=== PATIENT | male | born 1970 | race Caucasian/White ===

== ENCOUNTER 2020-06-05 09:54 | Outpatient (REF) | payer BC, SELFPAY ==
[2020-06-05 11:10] LABS: MANUAL DIFF FLAG NO
[2020-06-05 11:20] LABS: Basophils Absolute Auto 0.1 X10*3/uL (0.0-0.2); Basophils Percent Auto 0.9 % (0-2); Eosinophils Absolute Auto 0.6 X10*3/uL (0.0-0.4); Eosinophils Percent Auto 6.9 % (0-4); Hematocrit 49.5 % (42-52); Hemoglobin 16.7 g/dl (14.0-18.0); Imm Gran Abs Auto 0.03 X10*3/uL (0.00-0.03); Imm Gran Pct Auto 0.3 % (0.0-0.4); Lymphocytes Absolute Auto 3.1 X10*3/uL (1.2-4.9); Lymphocytes Percent Auto 34.7 % (20-40); Mean Corpuscular HGB Conc 33.7 g/dl (31.0-36.0); Mean Corpuscular Hemoglobin 31.7 pg (27.0-33.0); Mean Corpuscular Volume 93.9 fL (80-98); Monocytes Percent Auto 11.2 % (2-11); Neutrophils Absolute Auto 4.1 X10*3/uL (2.0-8.3); Platelet Count 281 X10*3/uL (160-400); Red Blood Count 5.27 X10*6/uL (4.60-5.80); Red Cell Distribution Width 13.2 % (11.0-16.0)
[2020-06-05 11:35] LABS: Glucose Urine UA NEG (NEG); Leukocyte Esterase Urine NEG (NEG); Nitrite Urine NEG (NEG); Specific Gravity - Urine >= 1.030 (1.005-1.025); Urine Blood NEG (NEG); Urine Ketones NEG (NEG); Urine Protein NEG (NEG-TRACE)
[2020-06-05 11:38] LABS: Appearance Urine CLEAR; Color Urine YELLOW
[2020-06-05 12:33] LABS: Alanine Aminotransferase 30 U/L (0-40); Albumin Level 4.7 g/dL (3.5-5.0); Alkaline Phosphatase 69 U/L (39-117); Anion Gap 14 (12-20); Aspartate Amino Transferase 33 U/L (5-37); Bilirubin Total 0.6 mg/dL (0.0-1.0); Blood Urea Nitrogen 18 mg/dL (9-16); Carbon Dioxide 30 mmol/L (22-29); Chloride 103 mmol/L (96-108); Estimated Glomerular Filt Rate 57; Glucose Random 86 mg/dL (60-115); Potassium 4.4 mmol/L (3.3-5.1); Sodium 143 mmol/L (135-145); Total Protein 7.7 g/dL (6.5-8.0)
[2020-06-05 12:47] LABS: Lipase 246 U/L (8-78)
== END 2020-06-05 09:55 | disposition home or self-care (01) ==
LOC: HO.HMGCLDS 09:54
PROVIDERS: PCP Nurse Practitioner Family; Visit Provider Hospitalist
DX: R10.32 Left lower quadrant pain (principal)
CPT/HCPCS: 36415; 80053; 81003; 83690; 85025

== ENCOUNTER 2020-06-26 08:01 | Outpatient (REF) | payer BC, SELFPAY ==
--- NOTE | ~2020-06-26 | CT_ITS ---
EXAMINATION: CT ABDOMEN AND PELVIS WITH CONTRAST CLINICAL INFORMATION: Left lower quadrant pain. COMPARISON: 11/02/2018 TECHNIQUE: Multidetector volumetric images were obtained from the superior aspect of the liver through the pubic symphysis following administration 85 mL of Omnipaque 350 intravenous contrast. Sagittal and coronal reformatted images were obtained on the technologist's workstation. Oral contrast: Yes This CT examination was performed using dose optimization techniques as appropriate, variously including the following: *Automated exposure control *Adjustment of mA and/or kV according to patient size (this includes techniques or standardized protocols for targeted exams where dose is matched to indication/reason for exam; i.e. extremities or head) *Use of iterative reconstruction technique DLP: 560 mGy-cm FINDINGS: LUNG BASES: The visualized lung bases are unremarkable. No pleural or pericardial effusion. LIVER, GALLBLADDER, AND BILIARY TREE: There is a 1.1 cm low-density lesion seen within segment 4B of the liver. This was present on prior study from 01/24/2018 where it measured approximately 8 mm in diameter. No intrahepatic bile duct dilatation. The gallbladder is unremarkable with no evidence of radiopaque gallstones, gallbladder wall thickening, or obvious pericholecystic inflammatory changes. PANCREAS: Unremarkable. No abnormal mass or peripancreatic inflammatory change. SPLEEN: Unremarkable. ADRENAL GLANDS: Unremarkable. KIDNEYS AND URETERS: The kidneys are normal in size, shape, and attenuation. No hydronephrosis, hydroureter, or calculi seen. No perinephric stranding. There are a few sub-5 mm cysts present bilaterally. BLADDER: Unremarkable. GASTROINTESTINAL TRACT: No dilated loops of large or small bowel are evident. No free air or free fluid is seen. There appears to be some wall thickening about the proximal jejunum but without associated adjacent inflammatory change within the fat. There is mild diverticulosis of the disease of the sigmoid colon without definite evidence of acute diverticulitis. No pericolonic inflammatory change. The appendix appears unremarkable. ABDOMINAL WALL: No hernia is appreciated. About the right inguinal region, there is some soft tissue density which may be related to previous hernia repair. LYMPH NODES: No lymphadenopathy appreciated. VASCULAR: Unremarkable. PELVIC VISCERA: Unremarkable. OSSEOUS STRUCTURES: No suspicious destructive bony lesions identified. Degenerative disc disease L5-S1. L4-L5 disc bulge. CT/CT abdomen pelvis w con IMPRESSION: Sigmoid diverticulosis without definite evidence of acute diverticulitis. No evidence of obstructive uropathy. A few loops of distended but not dilated jejunum with some wall thickening which may be related to enteritis.
[2020-06-26] MEDS: Barium Sulfate Oral (Berry) 450 ML ORAL.SUSP 900 ML PO (10:33)
== END 2020-06-26 08:02 | disposition home or self-care (01) ==
LOC: HO.CT 08:01
PROVIDERS: PCP Nurse Practitioner Family; Visit Provider Hospitalist
DX: R10.32 Left lower quadrant pain (principal)
CPT/HCPCS: 74177; Q9967

== ENCOUNTER 2021-06-18 14:39 | Outpatient (REF) | payer BC, SELFPAY ==
--- NOTE | ~2021-06-18 | XR_ITS ---
EXAMINATION: XR CHEST CLINICAL INFORMATION: Shortness of breath COMPARISON: None TECHNIQUE: 2 views of the chest were obtained. FINDINGS: No significant abnormality is noted involving the heart, lungs, mediastinum, bony thorax or soft tissues. XR/XR chest 2V IMPRESSION: Unremarkable chest examination.
== END 2021-06-18 14:40 | disposition home or self-care (01) ==
LOC: HO.HMGCX 14:39
PROVIDERS: PCP Nurse Practitioner Family; Visit Provider Internal Medicine
DX: R06.02 Shortness of breath (principal)
CPT/HCPCS: 71046

== ENCOUNTER → 2021-06-23 15:16 | Outpatient (BNVA) | payer BC, SELFPAY | PROVIDERS: PCP Nurse Practitioner Family; Referring Provider Nurse Practitioner Family; Visit Provider Nurse Practitioner | DX: Z12.11 Encounter for screening for malignant neoplasm of colon (principal); Z80.0 Family history of malignant neoplasm of digestive organs ==

== ENCOUNTER 2021-06-25 13:32 | Outpatient (REF) | payer BC, SELFPAY ==
--- NOTE | ~2021-06-25 | US_ITS ---
EXAMINATION: ULTRASOUND EXTREMITY NONVASCULAR CLINICAL INFORMATION: Left axilla lump. COMPARISON: None TECHNIQUE: Grayscale and color imaging of the left axilla using a linear transducer. FINDINGS: There is an oval-shaped solid hypoechoic lesion just deep to the skin. This measures 1.3 x 0.7 x 1.6 cm. This is avascular. This has increased through transmission. Differential would include a complex sebaceous cyst, epidermoid, abnormal-appearing lymph node, atypical appearance of lipoma or other soft tissue nodule. US/US extremity nonvascular IMPRESSION: Nonspecific 1.3 x 0.7 x 1.6 cm oval-shaped solid hypoechoic soft tissue mass just deep to the skin. Differential would include a complex sebaceous cyst, epidermoid, abnormal-appearing lymph node, atypical appearance of lipoma or other soft tissue nodule. This would be amenable to ultrasound-guided aspiration if clinically indicated.
--- NOTE | ~2021-06-25 | US_ITS ---
EXAMINATION: US THYROID CLINICAL INFORMATION: Family history of malignant neoplasm of other organs or systems. COMPARISON: None TECHNIQUE: Linear transducer grayscale and color Doppler examination with attention to the region of the thyroid. FINDINGS: SIZE: Measurements of the thyroid lobes and nodules are given in sagittal, anteroposterior and transverse dimensions respectively. Right Thyroid Lobe: 4.49 x 1.80 x 1.33 cm, volume 5.64 mL. Parenchyma: The gland echotexture is homogeneous. Thyroid vascularity is normal. Left Thyroid Lobe: 4.66 x 1.84 x 1.55 cm, volume 6.95 mL. Parenchyma: The gland echotexture is homogeneous. Thyroid vascularity is normal. Isthmus: 0.38 cm in maximum AP dimension. No focal thyroid nodule is seen. NODES: No lymphadenopathy is seen in the tissue surrounding the thyroid gland. US/US thyroid IMPRESSION: Unremarkable thyroid ultrasound. ACR TI-RADS RECOMMENDATION REFERENCE: Ultrasound-guided fine-needle aspiration, followup ultrasound, no further follow up. * TR1 (0 point) and TR 2 (2 points): No FNA or follow up * TR3 (3 points): FNA if more than or equal to 2.5 cm in maximum dimension, followup ultrasound in 1, 3 and 5 years if 1.5 to 2.4 cm in maximum dimension. * TR4 (4-6 points): FNA if more than or equal to 1.5 cm in maximum dimension, followup ultrasound in 1, 2, 3 and 5 years if 1 to 1.4 cm in maximum dimension. * TR5 (more than or equal to 7 points): FNA if more than or equal to 1 cm in maximum dimension, followup ultrasound every year for 5 years if 0.5 to 0.9 cm in maximum dimension. * TR3, TR4 or TR5 nodules that are below the size threshold for follow up receive no follow up.
== END 2021-06-25 13:33 | disposition home or self-care (01) ==
LOC: HO.HMGCX 13:32
PROVIDERS: PCP Nurse Practitioner Family; Visit Provider Nurse Practitioner Family
DX: R22.30 Localized swelling, mass and lump, unspecified upper limb (principal); Z80.8 Family history of malignant neoplasm of other organs or systems
CPT/HCPCS: 76536; 76882

== ENCOUNTER → 2021-07-31 07:47 | Outpatient (BNVA) | payer SELFPAY | PROVIDERS: PCP Nurse Practitioner Family; Visit Provider Internal Medicine | DX: Z13.89 Encounter for screening for other disorder (principal) ==

== ENCOUNTER 2021-08-13 11:18 | Day surgery (SDC) | payer BC, SELFPAY ==
[2021-08-07 09:49] VITALS: BMI 33.0
--- NOTE | 2021-08-12 10:46 | HO.ANESPROP2 ---
Documented by User: Nelli Purcell NP 08/19/21 13:45 HPI - Anesthesia Eval Consult details Narrative: 51yo M for Colonoscopy [facility] Active Problems Active Problems: All Active Problems (Updated 08/07/21 @ 09:51 by Brittany Collins, JEN) Abdominal pain (Acute) Idiopathic gout, unspecified site (Acute) Hypertension (Acute) Screening for colon cancer (Acute) Family history of thyroid cancer (Acute) Mass of axilla (Acute) Shortness of breath (Acute) Family history of colon cancer (Acute) Physical exam (Acute) Screening PSA (prostate specific antigen) (Acute) Past Medical History Medical History Epidermal inclusion cyst HTN (hypertension) Surgical History Surgical History H/O inguinal hernia repair History of ptosis repair Social History Social History Housing: House Patient Tobacco Use Status: Former Tobacco user Quit Date: off and on from age [age] e-Cigarette/Vaping Use: Never Used Second Hand Smoke Exposure: No service: No Current occupational status: employed Current occupation: [employer] Current occupational exposures/hazards: Yes Cognitive needs: No Hearing needs: No Vision needs: No Meds Allergies Allergy/AdvReac Type Severity Reaction Status Date / Time Sulfa (Sulfonamide Allergy Intermediate Severe Verified 08/19/21 15:42 Antibiotics) vomiting/acid [SULFA (SULFONAMIDE reflux/SOB ANTIBIOTICS)] Exam Exam Date and Time: August 12, 2021 1046 Height,Weight and Vital Signs: Height 5 ft 10 in Weight 104.326 kg Assessment and Plan Assessment Anesthesia Assessment: Chart Reviewed Documented by User: Bon Souza MD 08/20/21 10:21 [facility] Past Medical History Medical History Epidermal inclusion cyst HTN (hypertension) Family History Family history of problems with anesthesia: No Surgical History Surgical History H/O inguinal hernia repair History of ptosis repair History of Problems with Anesthesia: No Social History Social History Housing: House Patient Tobacco Use Status: Former Tobacco user Quit Date: off and on from age [age] e-Cigarette/Vaping Use: Never Used Second Hand Smoke Exposure: No service: No Current occupational status: employed Current occupation: [employer] Current occupational exposures/hazards: Yes Cognitive needs: No Hearing needs: No Vision needs: No Meds Allergies Allergy/AdvReac Type Severity Reaction Status Date / Time Sulfa (Sulfonamide Allergy Intermediate Severe Verified 08/19/21 15:42 Antibiotics) vomiting/acid [SULFA (SULFONAMIDE reflux/SOB ANTIBIOTICS)] Exam Airway Mallampati Class: II TM Dist: >3cm Assessment and Plan Assessment Anesthesia Assessment: Anesthesia Plan Discussed Final Anesthetic Review Family History of Problems with Anesthesia: No History of Problems with Anesthesia: No NPO: Yes ASA Class: II Final Preanesthetic Review: No Changes in Pt Med Stat, Meds/Allgs Chart Reviewed, Consent Obtained/Reviewed and Anes Risks/Benef Reviewed Patient Risk: Intermediate Procedure Risk: Low Anesthetic Plan Anesthetic Plan: MAC: Disposition: Standard PACU
[2021-08-13 11:44] VITALS: BP 129/80; PULSE 71; RESP 16; TEMP 36.7; O2SAT 96; BMI 33.0
--- NOTE | 2021-08-13 11:59 | MHC.SHP ---
Pre-Procedural Eval Section A Date of Service: 08/13/21 Section B Chief Complaint: screening Details of Present Illness: FH of cRC in brother and father Relevant Family History (Specify if Yes): Yes Relevant Social History: None Present Medications: see Short Stay Collaborative assessment Medical History: Significant History (HTN (hypertension)) History of Previous Operations: Relevant previous surgery/procedure and date(s) (H/O inguinal hernia repair History of ptosis repair) Allergies: Allergies Allergy/AdvReac Type Severity Reaction Status Date / Time Sulfa (Sulfonamide Allergy Intermediate Severe Verified 08/07/21 09:50 Antibiotics) vomiting/acid [SULFA (SULFONAMIDE reflux/SOB ANTIBIOTICS)] Review of Systems Sugical H&P ROS: Negative: Constitution, Cardiovascular, Respiratory, Neurological, Psychiatric, Hem-Onc, Allergic/Immunologic, Gastrointestinal, Genitourinary, Musculoskeletal, Integumentary, Endocrine and Eyes/Ears/Nose/Throat Exam Surgical H&P Exam: Normal: HEENT, Normal: Heart, Normal: Lungs, Normal: Extremities, Normal: Abdomen, Normal: Skin and Normal: Neurological Plan Diagnosis/Plan: Unchanged I have reviewed the history and physical and performed a pertinent physical examination on my patient. No changes have occurred unless specified.
--- NOTE | 2021-08-13 12:09 | P.OP_ITS ---
Operative Note Operative Note Date of Service: 08/13/21 Narrative: Operative Information Procedure Description: Colonoscopy Indication: colon screening- high risk Anesthesia: MAC COLONOSCOPY Instrument: Olympus variable stiffness adult scope 190L Colonoscopy Monitoring: Vital signs and clinical assessment, continuous EKG monitoring, Pulse oximetry, Carbon Dioxide monitoring and blood pressure monitoring were done throughout the procedure. Colon withdrawal time was 8 minutes. Procedure: The patient was placed in the left lateral decubitis position and pre-procedure medications were administered. After a digital rectal examination of the ano-rectum, the video colonoscope was inserted into the rectum and advanced through the colon to the cecum/TI. The colonoscope was slowly withdrawn in a retrograde panoramic fashion and the colon mucosa was carefully examined including a retroflexed view of the rectum. Findings and interventions are described below. Procedure Difficulty: easy Findings: Terminal Ileum-normal Cecum:normal Ascending Colon: 10 mm sessile polyp removed with cold snare Transverse Colon -normal Descending Colon:normal Sigmoid Colon: mild to moderate diverticulosis noted Rectum: Retroflexion with small internal hemorrhoids, grade I Anorectum - normal Colon preparation: [place] Bowel Preparation Scale Right colon; 2 Transverse colon: 3 Left colon; 3 (0 = Unprepared colon segment with mucosa not seen due to solid stool that cannot be cleared. 1 = Portion of mucosa of the colon segment seen, but other areas of the colon segment not well seen due to staining, residual stool and/or opaque liquid. 2 = Minor amount of residual staining, small fragments of stool and/or opaque liquid, but mucosa of colon segment seen well. 3 = Entire mucosa of colon segment seen well with no residual staining, small fragments of stool or opaque liquid) Impression and Post Procedure Diagnosis: polyp internal hemorrhoids diverticular disease Plan: High fiber diet leaflet Avoid straining at stool, epsom salts and sitz bath, anusol supps or cream Repeat Colonoscopy in 5 years due to FH or earlier if clinically indicated Above findings were reviewed with the patient and relevant handouts were provided if indicated.
--- NOTE | 2021-08-13 12:09 | PM.OP ---
Brief Operative Note Date of Service: 08/13/21 Pre-op diagnosis: colon screening, high risk Post-op diagnosis: same Procedure: see op note Surgeon: Octavio Hawkins MD Anesthesia: MAC Was an Veterinary Microbiologist used for this Procedure?: No Estimated blood loss (mL): 0 Condition: stable Disposition: PACU
[2021-08-13 12:45] VITALS: BP 115/69; PULSE 82; RESP 16; TEMP 36.1; O2SAT 95
[2021-08-13 13:00] VITALS: BP 117/81; PULSE 65; RESP 16; TEMP 36.8; O2SAT 96
[2021-08-13] MEDS: Lactated Ringers 1,000 ML 100 ML IVCONT (13:00)
== END 2021-08-13 13:35 | disposition home or self-care (01) ==
PROVIDERS: PCP Nurse Practitioner Family; Visit Provider Internal Medicine Gastroenterology
PROC: 0DJD8ZZ Inspection of Lower Intestinal Tract, Via Natural or Artificial Opening Endoscopic (ICD-10-PCS; CPT 45378; principal; 2021-08-13 13:50)
DX: Z12.11 Encounter for screening for malignant neoplasm of colon (principal); Z80.0 Family history of malignant neoplasm of digestive organs; D12.2 Benign neoplasm of ascending colon; K57.30 Diverticulosis of large intestine without perforation or abscess without bleeding; K64.0 First degree hemorrhoids; J40 Bronchitis, not specified as acute or chronic; I10 Essential (primary) hypertension; M10.9 Gout, unspecified; R06.02 Shortness of breath; Z79.899 Other long term (current) drug therapy; Z88.2 Allergy status to sulfonamides; Z87.891 Personal history of nicotine dependence
CPT/HCPCS: 45385; 88305; J2250

== ENCOUNTER → 2021-08-17 14:13 | Outpatient (BNVA) | payer BC, SELFPAY | PROVIDERS: PCP Nurse Practitioner Family; Visit Provider Surgery | DX: L72.0 Epidermal cyst (principal) ==

== ENCOUNTER 2021-08-18 08:32 | Outpatient (REF) | payer BC, SELFPAY ==
[2021-08-18 11:33] LABS: Basophils Absolute Auto 0.1 X10*3/uL (0.0-0.2); Basophils Percent Auto 0.9 % (0-2); Eosinophils Absolute Auto 2.5 X10*3/uL (0.0-0.4); Hematocrit 49.4 % (42.0-52.0); Hemoglobin 16.9 g/dl (14.0-18.0); Imm Gran Abs Auto 0.03 X10*3/uL (0.00-0.03); Imm Gran Pct Auto 0.3 % (0.0-0.4); Lymphocytes Absolute Auto 2.6 X10*3/uL (1.2-4.9); Lymphocytes Percent Auto 26.3 % (20-40); MANUAL DIFF FLAG SCAN; Mean Corpuscular HGB Conc 34.2 g/dl (31.0-36.0); Mean Corpuscular Hemoglobin 31.5 pg (27.0-33.0); Mean Platelet Volume 11.4 fL (9.4-12.4); Monocytes Absolute Auto 0.7 X10*3/uL (0.1-1.2); Monocytes Percent Auto 7.6 % (2-11); Neutrophils Absolute Auto 3.8 x10*3/uL (2.0-8.3); Neutrophils Percent Auto 38.9 % (45-73); Platelet Count 268 X10*3/uL (160-400); Red Blood Count 5.37 X10*6/uL (4.60-5.80); SCAN SMEAR FLAG 1; White Blood Count 9.8 X10*3/uL (4.8-10.8)
[2021-08-18 11:48] LABS: Appearance Urine HAZY; Color Urine YELLOW; Glucose Urine UA NEG (NEG); Leukocyte Esterase Urine NEG (NEG); Nitrite Urine NEG (NEG); Specific Gravity - Urine 1.015 (1.005-1.025); Urine Blood NEG (NEG); Urine Ketones NEG (NEG); Urine Protein NEG (NEG-TRACE)
[2021-08-18 11:52] LABS: SLIDE REVIEW VERIFIED
[2021-08-18 11:58] LABS: Alanine Aminotransferase 33 U/L (0-40); Albumin Level 4.5 g/dL (3.5-5.0); Alkaline Phosphatase 70 U/L (39-117); Anion Gap 14 (12-20); Aspartate Amino Transferase 24 U/L (5-37); Bilirubin Total 0.6 mg/dL (0.0-1.0); Blood Urea Nitrogen 14 mg/dL (9-16); Calcium 10.6 mg/dL (8.4-10.2); Carbon Dioxide 27 mmol/L (22-29); Chloride 103 mmol/L (96-108); Cholesterol 193 mg/dL; Estimated Glomerular Filt Rate 57; Glucose Fasting 118 mg/dL (60-99); HDL Cholesterol 46 mg/dL; LDL Cholesterol Calculated 122 mg/dl; Potassium 4.8 mmol/L (3.3-5.1); Sodium 139 mmol/L (135-145); Total Protein 7.5 g/dL (6.5-8.0); Triglycerides 125 mg/dL
[2021-08-18 12:14] LABS: Prostate Specific Antigen Scr 0.97 ng/mL (<0.05-4.0); TSH reflex Free T4 1.14 uIU/mL (0.32-4.0)
== END 2021-08-18 08:33 | disposition home or self-care (01) ==
LOC: HO.HMGCLDS 08:32
PROVIDERS: PCP Nurse Practitioner Family; Visit Provider Nurse Practitioner Family
DX: Z00.00 Encounter for general adult medical examination without abnormal findings (principal); Z12.5 Encounter for screening for malignant neoplasm of prostate
CPT/HCPCS: 36415; 80053; 80061; 81003; 84153; 84443; 85025

== ENCOUNTER 2021-08-19 17:57 | Outpatient (REF) | payer BC, SELFPAY ==
[2021-08-19 19:11] LABS: Influenza A PCR NEGATIVE (Negative); Influenza B PCR NEGATIVE (Negative); Resp Syncy Virus RNA Qual PCR NEGATIVE (Negative); SARS COV2 PCR INHOUSE NEGATIVE (Negative)
== END 2021-08-19 17:58 | disposition home or self-care (01) ==
LOC: HO.LNP 17:57
PROVIDERS: Visit Provider Emergency Medicine
DX: Z20.822 Contact with and (suspected) exposure to COVID-19 (principal); R68.89 Other general symptoms and signs
CPT/HCPCS: 0241U

== ENCOUNTER 2021-11-23 13:38 | Emergency (ER) | payer BC, SELFPAY ==
--- NOTE | ~2021-11-23 | CT_ITS ---
CT ANGIOGRAM NECK WITH CONTRAST CT ANGIOGRAM BRAIN WITH CONTRAST CLINICAL INFORMATION: Question dizziness. COMPARISON: None available. TECHNIQUE: Test bolus sequences followed by intravenous administration 70 mL of Omnipaque 350. Helical imaging was performed in the axial plane from the thoracic inlet to the skull vertex. Delayed postcontrast imaging of the head was also performed. The data was processed at the creative technologist workstation for generation of MIP sequences. Angled MIPs and volume rendered reformatted images were also generated at an offline 3D workstation under concurrent supervision. Stenoses are assessed in accordance with NASCET criteria unless otherwise indicated. This CT examination was performed using dose optimization techniques as appropriate, variously including the following: *Automated exposure control *Adjustment of mA and/or kV according to patient size (this includes techniques or standardized protocols for targeted exams where dose is matched to indication/reason for exam; i.e. extremities or head) *Use of iterative reconstruction technique FINDINGS: BRAIN: [There is no intracranial hemorrhage, hydrocephalus, extra-axial surface collection, midline shift, or other herniation pattern. Roberts to white matter differentiation is diffusely maintained without evidence of an evolved acute territorial infarct. The basilar cisterns are preserved. No significant soft tissue abnormality. No acute osseous abnormality. The paranasal sinuses and the mastoid air cells are well aerated.] CERVICAL SOFT TISSUES AND LUNG APICES: Imaged upper lungs are clear. No significant soft tissue findings. Multilevel cervical spondylosis. NECK CTA: [There is a classic 3 vessel configuration of the aortic arch. Proximal arch vessels are non-stenotic. The vertebral arteries are codominant. No significant ostial stenosis is visualized on either side. Both vertebral arteries are widely patent throughout their extracranial cervical course. Both common and internal carotid arteries are normal in course and caliber.] BRAIN CTA: [There is normal opacification of major intracranial arteries. No focal flow-limiting stenosis nor discrete proximal large artery occlusion. No aneurysm. Timing of the contrast bolus allows assessment of the major dural venous sinuses, which all opacify normally] CT/CT angio head neck IMPRESSION: Unremarkable CTA of the head and neck.
--- NOTE | ~2021-11-23 | MR_ITS ---
MRI OF THE BRAIN WITHOUT IV CONTRAST INDICATION: Dizziness. COMPARISON: CTA head and neck 11/23/2021. Brain MRI 09/20/2019. TECHNIQUE: Multiplanar multisequence MR imaging of the brain was obtained without IV contrast. FINDINGS: There is no hydrocephalus, extra-axial surface collection, or herniation. The major flow voids at the skull base are preserved. There is no acute infarct on diffusion-weighted imaging. There is no intracranial hemorrhage on the gradient recalled echo acquisition. The midline structures are normal. The cerebellar tonsils are normally positioned. The cerebellum and brainstem are normal. The craniocervical junction is normal. Osseous marrow signal intensity is homogenous. The visualized soft tissues are unremarkable. MR/MR head/brain wo con IMPRESSION: No acute intracranial findings. No acute infarcts.
[2021-11-23 13:54] VITALS: BP 135/94; BP 187/97; PULSE 67; PULSE 77; RESP 20; TEMP 36.7; O2SAT 96; O2SAT 99; BMI 35.9
[2021-11-23 14:04] VITALS: BP 135/94; PULSE 67; RESP 20; TEMP 36.7; O2SAT 96
[2021-11-23 14:07] LABS: Glucose, Whole Blood 129 mg/dL (60-115)
--- NOTE | 2021-11-23 14:08 | ECG_ITS ---
Test Reason : DIZZINESS Blood Pressure : / mmHG Vent. Rate : 056 BPM Atrial Rate : 056 BPM P-R Int : 148 ms QRS Dur : 100 ms QT Int : 456 ms P-R-T Axes : 041 000 007 degrees QTc Int : 440 ms Sinus bradycardia with sinus arrhythmia Otherwise normal ECG When compared with ECG of 06-FEB-2018 08:08, T wave inversion no longer evident in Inferior leads Referred By: Etienne Guajardo Electronically Signed By:CHELSEA PILLAI
[2021-11-23 14:37] LABS: MANUAL DIFF FLAG NO
[2021-11-23 14:39] LABS: Basophils Absolute Auto 0.1 X10*3/uL (0.0-0.2); Basophils Percent Auto 0.6 % (0-2); Eosinophils Percent Auto 10.2 % (0-4); Hematocrit 46.5 % (42.0-52.0); Hemoglobin 16.2 g/dl (14.0-18.0); Imm Gran Abs Auto 0.03 X10*3/uL (0.00-0.03); Imm Gran Pct Auto 0.3 % (0.0-0.4); Lymphocytes Percent Auto 21.4 % (20-40); Mean Corpuscular HGB Conc 34.8 g/dl (31.0-36.0); Mean Corpuscular Hemoglobin 31.6 pg (27.0-33.0); Mean Corpuscular Volume 90.8 fL (80.0-98.0); Mean Platelet Volume 10.3 fL (9.4-12.4); Monocytes Absolute Auto 0.7 X10*3/uL (0.1-1.2); Neutrophils Absolute Auto 5.6 x10*3/uL (2.0-8.3); Neutrophils Percent Auto 60.5 % (45-73); Platelet Count 251 X10*3/uL (160-400); Red Blood Count 5.12 X10*6/uL (4.60-5.80); Red Cell Distribution Width 12.6 % (11.0-16.0); White Blood Count 9.3 X10*3/uL (4.8-10.8)
--- NOTE | 2021-11-23 14:40 | ED_ITS ---
HPI - Dizziness General Chief Complaint: Dizziness Stated Complaint: DIZZINESS,HYPERTENSION Time Seen by Provider: 11/23/21 14:07 Source: patient Mode of arrival: EMS Limitations: no limitations History of Present Illness HPI Narrative: Dizziness while at work 1 h ago,was diphoretic,descrives th dizzness as spinning and lightheadedness at the same time,denies chest pain and SOB MD elicited complaint: dizziness Onset (ago): hour(s) (1) Severity: moderate Description: sense of movement, lightheadedness and off-balance History of similar symptoms: No Exacerbating factors: nothing Relieving factors: nothing Related Data Previous Rx's Medication Instructions Recorded lisinopril 40 mg tablet 40 mg PO DAILY #90 tabs 05/28/21 metoprolol succinate 100 mg 100 mg PO DAILY #90 tabs 05/28/21 tablet,extended release 24 hr triamterene 37.5 1 tab PO QAM #90 tabs 05/28/21 mg-hydrochlorothiazide 25 mg tablet albuterol sulfate 90 mcg/actuation 1 inh inhalation QID PRN shortness 06/18/21 aerosol inhaler of breath or wheezing #6.7 grams peg 3350-electrolytes 236 240 ml PO Q10M 1 day #4,000 mL 06/23/21 gram-22.74 gram-6.74 gram-5.86 gram solution (Golytely) inhalational spacing device #1 ea 08/19/21 (Aerochamber MV spacer) prednisone 10 mg tablet 10 mg PO DAILY #18 tabs 08/19/21 allopurinol 300 mg tablet 300 mg PO DAILY #90 tabs 08/20/21 esomeprazole magnesium 40 mg 40 mg PO DAILY 30 days #30 caps 11/15/21 capsule,delayed release Allergies Allergy/AdvReac Type Severity Reaction Status Date / Time Sulfa (Sulfonamide Allergy Intermediate Severe Verified 11/23/21 13:54 Antibiotics) vomiting/acid [SULFA (SULFONAMIDE reflux/SOB ANTIBIOTICS)] Review of Systems Constitutional: Constitutional: Reports no additional constitutional complaints Cardiovascular: Cardiovascular: Reports no additional cardiovascular complaints Respiratory: Respiratory: Reports no additional respiratory complaints Gastrointestinal: Gastrointestinal: Reports no additional gastrointestinal complaints Neurologic: Reports system reviewed and no additional complaints, except as documented PMFSH Past Medical History Medical History Epidermal inclusion cyst HTN (hypertension) Surgical History H/O inguinal hernia repair History of ptosis repair Social History Social History Housing: House Patient Tobacco Use Status: Former Tobacco user Quit Date: off and on from age [age] e-Cigarette/Vaping Use: Never Used Second Hand Smoke Exposure: No Advance Directives: No Advance Directives Information Provided: Yes service: No Current occupational status: employed Current occupation: [employer] Current occupational exposures/hazards: Yes Cognitive needs: No Hearing needs: No Vision needs: No Physical Exam Vital Signs: Vital Signs: Last Vital Signs Temp 98.2 F 11/23/21 15:48 Pulse 58 11/23/21 15:48 Resp 16 11/23/21 15:48 BP 136/79 11/23/21 15:48 Pulse Ox 98 11/23/21 15:48 O2 Del Method 11/23/21 15:48 BMI result Body Mass Index 35.9 Const: General: cooperative Nutritional Appearance: well nourished Orientation/consciousness: patient oriented x3 HEENT: Head: Yes normal to inspection Ears: hearing grossly normal bilaterally Face and sinus: Yes normal facial exam Mouth: Normal oral and palatal mucosa present Throat: Yes posterior oropharynx normal Eyes: General: appearance normal, both eyes and all related structures Conjunctivae: conjunctivae normal EOM: EOMs intact bilaterally Neck: Neck: Yes full ROM and Yes no lymphadenopathy Chest: Chest palpation & inspection: normal inspection of the chest Resp: Effort & Inspection: normal respiratory effort and able to speak in complete sentences Auscultation: clear to auscultation bilaterally Cardio: Jugular venous distension: no JVD Rate: regular rate Rhythm: regular rhythm GI: Inspection: Yes normal to inspection Palpation (GI): Soft to palpation Skin: General skin exam: no rashes or lesions noted, elasticity normal and turgor normal Lesions: no lesions Neuro: General: patient oriented x3, no focal motor deficits and CN's II-XI intact bilaterally Cranial nerves: Yes CN's II-XII intact bilaterally NIH Stroke Scale Level of Consciousness: Alert Level of Consciousness Questions: Answers both questions correctly Level of Consciousness Commands: Performs both tasks correctly Best Gaze: Normal Visual: No visual loss Facial Palsy: Normal Motor Arm (Right): No drift Motor Arm (Left): No drift Motor Leg (Right): No drift Motor Leg (Left): No drift Limb Ataxia: Absent Sensory: Normal Best Language: No aphasia Dysarthia: Normal Extinction and Inattention: No abnormality Score: 0 Course Reevaluation(s) Reevaluation #1: CTA negative,tropi negative,at this point will go ahead recheck tropi try meclizine and observe a little longer,neurologically is intact I will ventura out to Dr Mauro [facility] - Dizziness Lab Data Result diagrams: 11/23/21 14:30 11/23/21 14:30 Labs: Lab Results 11/23/21 11/23/21 11/23/21 Range/Units 14:03 14:30 14:30 WBC 9.3 (4.8-10.8) X10*3/uL RBC 5.12 (4.60-5.80) X10*6/uL Hgb 16.2 (14.0-18.0) g/dl Hct 46.5 (42.0-52.0) % MCV 90.8 (80.0-98.0) fL MCH 31.6 (27.0-33.0) pg MCHC 34.8 (31.0-36.0) g/dl RDW 12.6 (11.0-16.0) % Plt Count 251 (160-400) X10*3/uL MPV 10.3 (9.4-12.4) fL Immature Gran % (Auto) 0.3 (0.0-0.4) % Neut % (Auto) 60.5 (45-73) % Lymph % (Auto) 21.4 (20-40) % [place] % (Auto) 7.0 (2-11) % Eos % (Auto) 10.2 H (0-4) % Baso % (Auto) 0.6 (0-2) % Lymph # (Auto) 2.0 (1.2-4.9) X10*3/uL [place] # (Auto) 0.7 (0.1-1.2) X10*3/uL Eos # (Auto) 1.0 H (0.0-0.4) X10*3/uL Baso # (Auto) 0.1 (0.0-0.2) X10*3/uL Abs Immat Gran (auto) 0.03 (0.00-0.03) X10*3/uL Absolute Neuts (auto) 5.6 (2.0-8.3) x10*3/uL Absolute Nucleated RBC 0.000 (0.0-0.012) X10*3/uL Nucleated RBC % (auto) 0.0 (0.0-0.2) /100WBC Sodium 142 (135-145) mmol/L Potassium 3.8 D (3.3-5.1) mmol/L Chloride 104 (96-108) mmol/L Carbon Dioxide 25 (22-29) mmol/L Anion Gap 17 (12-20) BUN 16 (9-16) mg/dL Creatinine 1.28 (0.5-1.4) mg/dL Estim Creat Clear Calc 88.1 Estimated GFR 60 POC Glucose 129 H (60-115) mg/dL Random Glucose 118 H D (60-115) mg/dL Calcium 9.3 D (8.4-10.2) mg/dL Total Bilirubin 0.5 (0.0-1.0) mg/dL AST 24 (5-37) U/L ALT 31 (0-40) U/L Alkaline Phosphatase 66 (39-117) U/L Troponin I High Sens (<3.5-35.0) ng/L Total Protein 7.2 (6.5-8.0) g/dL Albumin 4.2 (3.5-5.0) g/dL 11/23/21 Range/Units 14:30 WBC (4.8-10.8) X10*3/uL RBC (4.60-5.80) X10*6/uL Hgb (14.0-18.0) g/dl Hct (42.0-52.0) % MCV (80.0-98.0) fL MCH (27.0-33.0) pg MCHC (31.0-36.0) g/dl RDW (11.0-16.0) % Plt Count (160-400) X10*3/uL MPV (9.4-12.4) fL Immature Gran % (Auto) (0.0-0.4) % Neut % (Auto) (45-73) % Lymph % (Auto) (20-40) % [place] % (Auto) (2-11) % Eos % (Auto) (0-4) % Baso % (Auto) (0-2) % Lymph # (Auto) (1.2-4.9) X10*3/uL [place] # (Auto) (0.1-1.2) X10*3/uL Eos # (Auto) (0.0-0.4) X10*3/uL Baso # (Auto) (0.0-0.2) X10*3/uL Abs Immat Gran (auto) (0.00-0.03) X10*3/uL Absolute Neuts (auto) (2.0-8.3) x10*3/uL Absolute Nucleated RBC (0.0-0.012) X10*3/uL Nucleated RBC % (auto) (0.0-0.2) /100WBC Sodium (135-145) mmol/L Potassium (3.3-5.1) mmol/L Chloride (96-108) mmol/L Carbon Dioxide (22-29) mmol/L Anion Gap (12-20) BUN (9-16) mg/dL Creatinine (0.5-1.4) mg/dL Estim Creat Clear Calc Estimated GFR POC Glucose (60-115) mg/dL Random Glucose (60-115) mg/dL Calcium (8.4-10.2) mg/dL Total Bilirubin (0.0-1.0) mg/dL AST (5-37) U/L ALT (0-40) U/L Alkaline Phosphatase (39-117) U/L Troponin I High Sens < 3.5 (<3.5-35.0) ng/L Total Protein (6.5-8.0) g/dL Albumin (3.5-5.0) g/dL Imaging Data CT scan - head: Radiologist's impression: BRAIN: [There is no intracranial hemorrhage, hydrocephalus, extra-axial surface collection, midline shift, or other herniation pattern. Roberts to white matter differentiation is diffusely maintained without evidence of an evolved acute territorial infarct. The basilar cisterns are preserved. No significant soft tissue abnormality. No acute osseous abnormality. The paranasal sinuses and the mastoid air cells are well aerated.] CERVICAL SOFT TISSUES AND LUNG APICES: Imaged upper lungs are clear. No significant soft tissue findings. Multilevel cervical spondylosis. NECK CTA: [There is a classic 3 vessel configuration of the aortic arch. Proximal arch vessels are non-stenotic. The vertebral arteries are codominant. No significant ostial stenosis is visualized on either side. Both vertebral arteries are widely patent throughout their extracranial cervical course. Both common and internal carotid arteries are normal in course and caliber.] BRAIN CTA: [There is normal opacification of major intracranial arteries. No focal flow-limiting stenosis nor discrete proximal large artery occlusion. No aneurysm. Timing of the contrast bolus allows assessment of the major dural venous sinuses, which all opacify normally] CT/CT angio head neck IMPRESSION: Unremarkable CTA of the head and neck. Discharge Plan Discharge Clinical Impression: Dizziness Patient Disposition: Still a Patient Prescriptions: No Action allopurinol 300 mg tablet 300 mg PO DAILY Qty: 90 1RF esomeprazole magnesium 40 mg capsule,delayed release(DR/EC) 40 mg PO DAILY 30 Days Qty: 30 3RF lisinopril 40 mg tablet 40 mg PO DAILY Qty: 90 3RF metoprolol succinate 100 mg tablet extended release 24 hr 100 mg PO DAILY Qty: 90 3RF triamterene-hydrochlorothiazid 37.5-25 mg tablet 1 tab PO QAM Qty: 90 3RF albuterol sulfate 90 mcg/actuation HFA aerosol inhaler 1 inh inhalation QID PRN (Reason: shortness of breath or wheezing) Qty: 6.7 1 RF prednisone 10 mg tablet 10 mg PO DAILY Qty: 18 0RF Rx Instructions: Take 4 tabs p.o. daily x 3 days, take 2 tab x 3 days (DME) Aerochamber MV Spacer See Rx Instructions .ROUTE .MEDSUPPLY Qty: 1 0RF Rx Instructions: As directed peg 3350-electrolytes [Golytely] 236-22.74-6.74 -5.86 gram recon soln 240 ml PO Q10M 1 Days Qty: 4000 0RF Rx Instructions: until fecal effluent is clear; do not exceed a total volume of 2,000 mL
[2021-11-23 14:52] LABS: Alanine Aminotransferase 31 U/L (0-40); Albumin Level 4.2 g/dL (3.5-5.0); Alkaline Phosphatase 66 U/L (39-117); Anion Gap 17 (12-20); Aspartate Amino Transferase 24 U/L (5-37); Bilirubin Total 0.5 mg/dL (0.0-1.0); Blood Urea Nitrogen 16 mg/dL (9-16); Calcium 9.3 mg/dL (8.4-10.2); Carbon Dioxide 25 mmol/L (22-29); Chloride 104 mmol/L (96-108); Creatinine Clr Calc Pharmacy 88.1; Estimated Glomerular Filt Rate 60; Glucose Random 118 mg/dL (60-115); Potassium 3.8 mmol/L (3.3-5.1); Sodium 142 mmol/L (135-145); Total Protein 7.2 g/dL (6.5-8.0)
[2021-11-23 14:57] LABS: Troponin-I High Sensitivity < 3.5 ng/L (<3.5-35.0)
[2021-11-23] MEDS: iohexoL 350 MG/ML 100 ML INFUS..BTL IV (15:38)
--- NOTE | 2021-11-23 15:45 | PC.NURSE ---
pt states feeling dizzy and nausea with standing
[2021-11-23 15:48] VITALS: BP 136/79; PULSE 58; RESP 16; TEMP 36.8; O2SAT 98
[2021-11-23 18:00] VITALS: BP 142/84; PULSE 68; RESP 16; TEMP 36.1; O2SAT 98
[2021-11-23] MEDS: Meclizine HCl 25 MG TABLET PO (18:05)
[2021-11-23] MEDS: 0.9 % Sodium Chloride 1,000 ML 999 ML IVCONT (18:05)
[2021-11-23 18:08] LABS: Troponin-I High Sensitivity < 3.5 ng/L (<3.5-35.0)
[2021-11-23 20:00] VITALS: BP 138/67; PULSE 70; RESP 16; TEMP 36.8; O2SAT 94
[2021-11-23 21:38] VITALS: BP 130/58; PULSE 61; RESP 16; TEMP 36.6
[2021-11-23] MEDS: diazePAM 2 MG TABLET 5 MG PO (22:20)
== END 2021-11-23 22:30 | disposition home or self-care (01) ==
PROVIDERS: Emergency Provider Emergency Medicine; PCP Nurse Practitioner Family
DX: R42 Dizziness and giddiness (principal); I10 Essential (primary) hypertension; Z87.891 Personal history of nicotine dependence; Z79.899 Other long term (current) drug therapy
CPT/HCPCS: 36415; 70496; 70498; 70551; 80053; 82947; 84484; 85025; 93005; 96360; 96361; 99284; 99285; Q9967

== ENCOUNTER 2021-12-04 14:00 | Outpatient (RCR) | payer BC, SELFPAY ==
[2021-11-26 11:13] VITALS: BP 142/90; PULSE 64; O2SAT 96
--- NOTE | 2021-11-26 12:50 | MHC.PT.EP ---
[facility] [place] Office [place] Office [place] Office [address] [place] [address] Dr Maria Guadalupe Negron [address] [phone] F: [phone] F: [phone] F: [phone] F: [phone] Physical Therapy Plan of Care Date of Evaluation: Date of Surgery: Diagnosis: Vertigo Assessment: This is a 41 yo male presenting to skilled PT with a script for vertigo. Pt was seen in the ER on 11/23 after he started feeling off at work. He was brought in and was described as marquez, nonresponsive at times, sweating and blood pressure was elevated. CTA of the head/neck was negative. Stroke scale negative. Troponion x2 negative. Brain MRI was negative. Pt was DC'd from the ED with dx of BPPV. Pt is interested in vestibular rehab to r/o vertigo. Today he reports no more symptoms. He denies dizziness, fogginess, lightheadedness, nausea, vomiting, LOB, chest pain, shortness of breath, extremity weakness, and numbness/tingling. Examination shows normal oculomotor tests except for horizontal saccades (non symptomatic), (-) VBI B, and WFL cervical AROM. He was (-) for BPPV with bebo-hallpike and roll tests. Patient demos normal balance tests/scores with normal responses. S/S are not consistent with BPPV at this time but would benefit from PT 2x/wk for 4wks to address impairments, implement HEP and optimize functional mobility if symptoms return. 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 Manual therapy to restore motion and function. Therapeutic exercise to improve strength and flexibility. Neuromuscular re-education for posture and balance. Therapeutic activities to return to functional activities of daily living. Electronically signed by: Becky Perez PT Please sign and return to therapist. Thank you for your referral.
--- NOTE | 2021-12-04 14:15 | MHC.PT.OD ---
[facility] [place] Office [place] Office [place] Office [address] Maria Guadalupe Negron [address] [phone] F: [phone] F: [phone] F: [phone] F: [phone] Physical Therapy Daily Note Diagnosis: Vertigo Date of Surgery: Date of Evaluation: 11/26/21 Date of Treatment: 12/04/21 Treatments to Date: 2 Cancellations to Date: 0 No Shows to Date: 0 Authorized Visits: 60 Insurance End Date: Precautions/ Contraindications:Recently in ER Subjective: Patient without increase in any symptoms since last visit Pain Score and Location: 0 NA Objective Flowsheet: Tests & Measures Please see eval Exercises Reassessment of all canals and oculomotor tests Ed regarding PT findings, POC, referral back to PCP Modalities Assessment: 12/04: Patient without symptoms of dizziness or lightheadedness. He has not had another incident similar to that of last week when he went to the ED. He continues to be negative in all 6 canals at assessment today. He also demos normal oculomotor tests and balance. At this time I am referring him back to PCP for further assessment and referral options. EVALUATION 11/27: This is a 41 yo male presenting to skilled PT with a script for vertigo. Pt was seen in the ER on 11/23 after he started feeling off at work. He was brought in and was described as marquez, nonresponsive at times, sweating and blood pressure was elevated. CTA of the head/neck was negative. Stroke scale negative. Troponion x2 negative. Brain MRI was negative. Pt was DC'd from the ED with dx of BPPV. Pt is interested in vestibular rehab to r/o vertigo. Today he reports no more symptoms. He denies dizziness, fogginess, lightheadedness, nausea, vomiting, LOB, chest pain, shortness of breath, extremity weakness, and numbness/tingling. Examination shows normal oculomotor tests except for horizontal saccades (non symptomatic), (-) VBI B, and WFL cervical AROM. He was (-) for BPPV with bebo-hallpike and roll tests. Patient demos normal balance tests/scores with normal responses. S/S are not consistent with BPPV at this time but would benefit from PT 2x/wk for 4wks to address impairments, implement HEP and optimize functional mobility if symptoms return. PT Plan: reassess as needed Short Term Goals: Not STG's needed at this time Tax Compliance Officer Goals: (if patient has a return or symptoms or nystagmus) I in HEP No nystagmus or symptoms in any testing positions No LOB noted and normal scores on balance tests Electronically signed by: Becky Perez, PT
--- NOTE | 2021-12-29 11:51 | MHC.PT.DC ---
[facility] [place] Office [place] Office [place] Office [address] [phone] F: [phone] F: [phone] F: [phone] F: [phone] Physical Therapy Discharge Report Diagnosis: Vertigo Date of Surgery: Date of Evaluation: 11/26/21 Date of Discharge: 12/29/21 Treatments to Date: 2 Cancellations to Date: 0 No Shows to Date: 0 Discharge Status: Recommend MD Follow-up Discharge Summary: Patient without symptoms of dizziness or lightheadedness. He has not had another incident similar to that of last week when he went to the ED. He continues to be negative in all 6 canals at assessment today. He also demos normal oculomotor tests and balance. At this time I am referring him back to PCP for further assessment and referral options. Electronically signed by: Becky Perez PT Please sign and return to therapist. Thank you for your referral.
== END 2021-12-29 11:52 | disposition home or self-care (01) ==
LOC: HO.PTCHIC 14:00
PROVIDERS: PCP Nurse Practitioner Family; Visit Provider Nurse Practitioner Family
DX: R42 Dizziness and giddiness (principal)
CPT/HCPCS: 97110; 97112; 97161

== ENCOUNTER 2022-11-10 11:17 | Outpatient (AMB) | payer BC, SELFPAY ==
--- NOTE | 2022-11-10 11:18 | MHC.OFFWIV ---
Intake Vital Signs 11/10/22 11:19 Height 5 ft 10 in Weight 103.873 kg BMI 32.9 BP 130/72 Blood Pressure Location Rt brachial Position Sitting Pulse 96 Pulse Source Pulse Oximeter Temp 96.1 F L Temp Source Temporal Artery Scan Pulse Oximetry (%) 96 Oxygen Delivery Method Room Air Intake Visit Reasons: EP ?Lyme disease Intake Note: Pt is here c/o neck pain/ sitff neck. Pt states he had a headache where he wasn't able to eat or do anything. Pt states he took otc medications but was woken up at 2 AM in pain. Pt also states his son and animals all came back positive for lyme disease and doesn't know if that has something to do with it. Patient Tobacco Use Status: Former Tobacco user Quit Date: off and on from age [age] Allergies Sulfa (Sulfonamide Antibiotics) [SULFA (SULFONAMIDE ANTIBIOTICS)] Allergy (Intermediate, Verified 11/10/22 11:21) Severe vomiting/acid reflux/SOB Do you need a note to return to daycare/school/sports/work: Yes HPI HPI Comments History of Present Illness Details 1140 This is a 52-year-old male presenting with right-sided neck discomfort/tightness that radiates into his head, this has been going on for the past few days, pain improved with ibuprofen/Tylenol on muscle relaxers, patient reports yesterday he had a very stiff neck and had difficulty moving his neck freely secondary to tightness, he reports he woke up that way. Patient would like to be tested for Lyme disease as his son currently has Lyme disease in all his dogs at home have Lyme disease, [place], he has been outside a lot, he is concerned he may have Lyme, he is not recall whether not he has been bit by a tick however he states he has not removed any ticks from his body. Patient denies visual disturbances, dizziness, nausea, vomiting, abdominal pain, fevers, chills, chest pain, shortness of breath. NIH stroke scale 0 Physical exam benign Concerns for musculoskeletal, torticollis, verses cervical spasm. Unlikely meningitis, encephalitis intracranial hemorrhage, stroke, posterior stroke. Will rule out tick-borne illnesses. Atraumatic unlikely fracture, dislocation or traumatic subluxation. Will start patient on doxycycline due to high suspicion. Will also some muscle relaxers. Educated patient on diagnosis and treatment plan, answered all question, patient verbalizes understanding. At this time patient will be discharged home, advised to return with new or worsening symptoms. Educated on worrisome signs and symptoms and when to return. At this time I feel comfortable discharge home. [facility] Medical History Epidermal inclusion cyst HTN (hypertension) Surgical History H/O inguinal hernia repair History of ptosis repair Social History Housing: House Patient Tobacco Use Status: Former Tobacco user Quit Date: off and on from age [age] e-Cigarette/Vaping Use: Never Used Second Hand Smoke Exposure: No service: No Current occupational status: employed Current occupation: [employer] Current occupational exposures/hazards: Yes Cognitive needs: No Hearing needs: No Vision needs: No Review of Systems Const Details: Constitutional : No Weight loss, No Fever, No Chills, No Fatigue, No Malaise ENT/Mouth : No sore throat, No Rhinorrhea Eyes: No Eye Pain, No Swelling, No Redness Cardiovascular : No Chest Pain, No SOB, No Dyspnea on Exertion, No Orthopnea, No Edema, No Palpitations Respiratory : No Cough, No Sputum, No Wheezing Gastrointestinal : No Nausea, No Vomiting, No Diarrhea, No Constipation, No abdominal Pain, No Hematochezia, No Melena Genitourinary : No Dysuria, No Urinary Frequency, No Hematuria, Musculoskeletal : No joint pain, No Myalgias, No Joint Swelling, + neck pain Skin : No Skin Lesions, No rash Neuro : No Weakness, No Numbness, No Dizziness, + Headache Psych : No Anxiety/Panic, No Depression All other systems reviewed and are negative All systems reviewed & are unremarkable except as noted in HPI and below Physical Exam Vital Signs: Last Vital Signs Temp 96.1 F L 11/10/22 11:19 Pulse 96 11/10/22 11:19 BP 130/72 11/10/22 11:19 Pulse Ox 96 11/10/22 11:19 Oxygen Delivery Method Room Air 11/10/22 11:19 BMI result Body Mass Index 32.9 Vital Signs stable Appearance: Alert.? Oriented X3.? No acute distress.? Head: Normocephalic, atraumatic, no step-offs or deformities Eyes: Pupils equal, round and reactive to light.? Neck: Negative Kernig and Brudzinski CVS: Normal heart rate and rhythm.? Pulses normal.? Respiratory: No respiratory distress.? Breath sounds normal.? Abdomen: Soft and nontender.? Skin: Skin warm and dry.? Normal skin color.? Normal skin turgor.? Extremities: No lower extremity edema.? No calf ttp. 5/5 strength to bilateral upper and lower extremities Neuro: Oriented X 3.? No motor deficit.? No sensory deficit. CN 2-12 intact Assessment & Plan Assessment & Plan (1) Neck pain: Code(s): M54.2 - Cervicalgia Plan Take your medications as prescribed. If you were prescribed antibiotics today, it is important that you take your medication to their entirety, do not skip any doses, do not finish them early. Follow-up with your primary care provider this week. Return to the emergency department with new or worsening symptoms. Such as fevers, chills, chest pain, shortness of breath, nausea, vomiting, dizziness, headache, vision changes, lethargy In case of emergency call 911 Orders: Orders Lyme IgG/IgM w/reflex to WB Today W57.XXXA - Bitten or stung by nonvenomous insect and other nonvenomous arthropods, initial encounter Tick-borne Disease Molecular Today W57.XXXA - Bitten or stung by nonvenomous insect and other nonvenomous arthropods, initial encounter Medications: New doxycycline hyclate 100 mg PO BID 14 caps 0RF 7 days cyclobenzaprine 10 mg PO BEDTIME PRN 14 tabs 0RF muscle spasm lidocaine 4% (AsperFlex (lidocaine)) 1 patch topical DAILY PRN 15 ea 0RF pain Coding Level of Care Code Est Pt Level 3 (17389) Diagnoses Neck pain M54.2
[2022-11-10 11:19] VITALS: BP 130/72; PULSE 96; TEMP 35.6; O2SAT 96; BMI 32.9
== END 2022-11-10 12:45 | disposition home or self-care (01) ==
PROVIDERS: PCP Nurse Practitioner Family; Visit Provider Physician Assistant
DX: M54.2 Cervicalgia (principal)
CPT/HCPCS: 99213

== ENCOUNTER 2022-11-10 11:27 | Outpatient (REF) | payer BC, SELFPAY ==
[2022-11-12 05:33] LABS: Lyme Abs Screen <0.90 index
[2022-11-12 21:19] LABS: A. Phagocytphilium DNA,RT-PCR NOT DETECTED (NOT DETECTED); Babesia Microti DNA, RT-PCR NOT DETECTED (NOT DETECTED); Borrelia Miyamotoi,DNA RT-PCR NOT DETECTED (NOT DETECTED); E.Chaffeensis DNA RT-PCR NOT DETECTED (NOT DETECTED); Lyme(Borrelia ssp)DNA RT-PCR NOT DETECTED (NOT DETECTED)
== END 2022-11-10 11:28 | disposition home or self-care (01) ==
LOC: HO.HMGCLDS 11:27
PROVIDERS: PCP Nurse Practitioner Family; Visit Provider Physician Assistant
DX: T14.8XXA Other injury of unspecified body region, initial encounter (principal); W57.XXXA Bitten or stung by nonvenomous insect and other nonvenomous arthropods, initial encounter; Y93.9 Activity, unspecified; Y92.9 Unspecified place or not applicable; Y99.9 Unspecified external cause status
CPT/HCPCS: 36415; 86617; 86618; 87798; 87801

== ENCOUNTER 2023-05-24 10:10 | Outpatient (AMB) | payer BC, SELFPAY ==
[2023-05-24 10:14] VITALS: BP 110/90; PULSE 81; TEMP 36.3; O2SAT 96; BMI 34.0
--- NOTE | 2023-05-24 10:14 | MHC.OFFWIV ---
Intake Vital Signs 05/24/23 10:14 Height 5 ft 10 in Weight 237 lb BMI 34.0 BP 110/90 H Blood Pressure Location Lt brachial Position Sitting Pulse 81 Pulse Source Pulse Oximeter Temp 97.4 F Temp Source Temporal Artery Scan Pulse Oximetry (%) 96 Oxygen Delivery Method Room Air Intake Visit Reasons: EP Cough [phone] Intake Note: pt is here today for cough started last Tuesday Patient Tobacco Use Status: Former Tobacco user Quit Date: off and on from age [age] Allergies Sulfa (Sulfonamide Antibiotics) [SULFA (SULFONAMIDE ANTIBIOTICS)] Allergy (Intermediate, Verified 05/24/23 10:37) Severe vomiting/acid reflux/SOB Medication List - Last Reconciled 05/24/23 by ABBIE Gibbs albuterol sulfate 90 mcg/actuation 1 inh inhalation QID PRN allopurinol 300 mg PO DAILY esomeprazole magnesium 40 mg PO DAILY inhalational spacing device (Aerochamber MV spacer) As directed lisinopril 40 mg PO DAILY metoprolol succinate ER 100 mg PO DAILY triamterene-hydrochlorothiazid 37.5-25 mg 1 tab PO QAM Do you need a note to return to daycare/school/sports/work: No HPI HPI Comments History of Present Illness Details Patient is a 53-year-old male in today for a sick visit. He states he has been around many people at work who have had upper respiratory symptoms. He tested positive for COVID 1 week prior to this visit. He states he has symptoms of cough, headache, sore throat, chest congestion. He has a past medical history significant for reactive airway disease, states that he feels like this is turning into a bronchitis. He has been expectorating green yellow mucus. Denies chest pain, shortness a breath, dizziness, numbness, nausea, vomiting, diarrhea. He has been able to use some [id number] med medication with little relief. States that his cough is really bad at night and is interrupting his sleep. [facility] Medical History Epidermal inclusion cyst HTN (hypertension) Surgical History History of ptosis repair H/O inguinal hernia repair Social History Housing: House Patient Tobacco Use Status: Former Tobacco user Quit Date: off and on from age [age] e-Cigarette/Vaping Use: Never Used Second Hand Smoke Exposure: No service: No Current occupational status: employed Current occupation: [employer] Current occupational exposures/hazards: Yes Cognitive needs: No Hearing needs: No Vision needs: No Review of Systems Const Details: Constitutional : No Weight loss, No Fever, Admits Chills, No Fatigue, No Malaise ENT/Mouth : Admits sore throat, No Rhinorrhea. No ear Pain. Eyes: No Eye Pain, No Swelling, No Redness Cardiovascular : No Chest Pain, No SOB, No Dyspnea on Exertion, No Orthopnea, No Edema, No Palpitations Respiratory : Admits Cough, Admits Sputum, Admits Wheezing Gastrointestinal : No Nausea, No Vomiting, No Diarrhea, No Constipation, No abdominal Pain, No Hematochezia, No Melena Musculoskeletal : No joint pain, No Myalgias, No Joint Swelling Skin : No Skin Lesions, No rash Neuro : No Weakness, No Numbness, No Dizziness, No Headache All other systems reviewed and are negative Physical Exam Vital Signs: Last Vital Signs Temp 97.4 F 05/24/23 10:14 Pulse 81 05/24/23 10:14 BP 110/90 H 05/24/23 10:14 Pulse Ox 96 05/24/23 10:14 Oxygen Delivery Method Room Air 05/24/23 10:14 BMI result Body Mass Index 34.0 Const Other: Appearance: Alert.? Oriented X3.? No acute distress.? Head: Normocephalic, atraumatic, Eyes: Pupils equal, round and reactive to light.? ENT: Pharynx erythema.?TM intact and pearly marquez. Neck: Normal inspection.? Neck supple.? CVS: Normal heart rate and rhythm.? Pulses normal.? Respiratory: No respiratory distress.? Bilateral wheeze of upper lobes. Neuro: Oriented X 3.? No motor deficit.? No sensory deficit. CN 2-12 intact Results Reviewed Results Reviewed: Will call patient with chest x-ray results. Assessment & Plan Assessment & Plan (1) Upper respiratory infection: Comment: Patient likely has upper respiratory infection. Will obtain chest x-ray. Patient has history of reactive airway disease and bronchitis will cover with Augmentin, prednisone, benzonatate. Patient also has been educated to use his albuterol inhaler home p.r.n.. Patient has been educated on signs of worsening symptoms and when to return to the walk-in clinic or when to present to the ED. Code(s): J06.9 - Acute upper respiratory infection, unspecified Qualifiers: URI type: unspecified URI Qualified Code(s): J06.9 - Acute upper respiratory infection, unspecified Plan: Follow-up with PCP Plan Take your medications as prescribed. If you were prescribed antibiotics today, it is important that you take your medication to their entirety, do not skip any doses, do not finish them early. Follow-up with your primary care provider this week. Return to the emergency department with new or worsening symptoms. Such as fevers, chills, chest pain, shortness of breath, nausea, vomiting, dizziness, headache, vision changes, lethargy In case of emergency call 911 Orders: Orders XR chest 2V Today R09.89 - Other specified symptoms and signs involving the circulatory and respiratory systems SARS-CoV2/FLU/RSV Today J06.9 - Acute upper respiratory infection, unspecified Medications: New amoxicillin-pot clavulanate 875-125 mg 1 tab PO Q12H 20 tabs 0RF prednisone 40 mg (2 x 20 mg) PO DAILY 10 tabs 0RF benzonatate 200 mg PO BID PRN 30 caps 0RF cough Coding Level of Care Code Est Pt Level 3 (23691) Diagnoses Upper respiratory tract infection, unspecified type J06.9 URI type: unspecified URI Time Spent (min) 21
== END 2023-05-24 11:39 | disposition home or self-care (01) ==
PROVIDERS: PCP Nurse Practitioner Family; Visit Provider Nurse Practitioner Primary Care
DX: J06.9 Acute upper respiratory infection, unspecified (principal)
CPT/HCPCS: 99213

== ENCOUNTER 2023-05-24 10:42 | Outpatient (REF) | payer BC, SELFPAY ==
--- NOTE | ~2023-05-24 | XR_ITS ---
EXAMINATION: XR CHEST CLINICAL INFORMATION: Other specified symptoms and signs involving the thoracic inlet toward the system COMPARISON: Chest x-ray June 18, 2021 TECHNIQUE: 2 views of the chest were obtained. FINDINGS: Cardiac silhouette is normal in size. The lungs are well aerated. There is no lobar consolidation. No pleural effusion or pneumothorax. Mild degenerative changes of the spine. XR/XR chest 2V IMPRESSION: No acute pulmonary pathology.
[2023-05-24 15:40] LABS: Influenza A PCR NEGATIVE (Negative); Influenza B PCR NEGATIVE (Negative); Resp Syncy Virus RNA Qual PCR NEGATIVE (Negative); SARS COV2 PCR INHOUSE NEGATIVE (Negative)
== END 2023-05-24 10:43 | disposition home or self-care (01) ==
LOC: HO.HMGCX 10:42
PROVIDERS: PCP Nurse Practitioner Family; Visit Provider Nurse Practitioner Primary Care
DX: R09.89 Other specified symptoms and signs involving the circulatory and respiratory systems (principal); J06.9 Acute upper respiratory infection, unspecified; Z11.52 Encounter for screening for COVID-19; Z20.822 Contact with and (suspected) exposure to COVID-19
CPT/HCPCS: 0241U; 71046

== ENCOUNTER 2023-08-18 07:44 | Outpatient (AMB) | payer BC, SELFPAY ==
--- NOTE | 2023-08-18 07:53 | MHC.PC.OV ---
Vital Signs 08/18/23 07:56 Height 5 ft 10 in Weight 241 lb BMI 34.6 BP 124/82 Blood Pressure Location Rt brachial Position Sitting Pulse 67 Pulse Source Pulse Oximeter Pulse Oximetry (%) 98 Oxygen Delivery Method Room Air Intake Visit Reasons: Adult CPE Male 18-49 Intake Note: Patient here for physical exam. Colon: 2021 due 2026 Allergies Sulfa (Sulfonamide Antibiotics) [SULFA (SULFONAMIDE ANTIBIOTICS)] Allergy (Intermediate, Verified 08/18/23 08:15) Severe vomiting/acid reflux/SOB Medication List - Last Reconciled 08/18/23 by ANTOINE Mandujano albuterol sulfate 90 mcg/actuation 1 inh inhalation QID PRN allopurinol 300 mg PO DAILY esomeprazole magnesium 40 mg PO DAILY inhalational spacing device (Aerochamber MV spacer) As directed lisinopril 40 mg PO DAILY metoprolol succinate ER 100 mg PO DAILY triamterene-hydrochlorothiazid 37.5-25 mg 1 tab PO QAM Tobacco use date assessed: 08/18/23 Dental Screening Dental Screen Date: 08/18/23 Did you have a dental visit in the last 12 months?: No Did you have a dental problem in the last 6 months where you did not have access to dental care?: No Was dental information given to patient?: No HPI Encounter for routine adult health examination HPI Details Pt is here for a PE. Will order labs. Colon screen is up to date. Due for PSA, will order. Denies dribbling with urination and frequent nocturia, does report intermittent weak stream. Pt has a strong family hx of prostate cancer (one brother diagnosed age 50). Will refer to urology. Pt has a family hx of thyroid cancer. ? left thyroid nodule. Will order US. ON LICENSE OF [facility] Medical History Epidermal inclusion cyst HTN (hypertension) Surgical History History of ptosis repair H/O inguinal hernia repair Social History Housing: House Patient Tobacco Use Status: Never used Tobacco e-Cigarette/Vaping Use: Never Used Second Hand Smoke Exposure: No service: No Current occupational status: employed Current occupation: [employer] Current occupational exposures/hazards: Yes Cognitive needs: No Hearing needs: No Vision needs: No Questionnaire PHQ-9 Over the last 2 weeks, how often have you been bothered by any of the following problems? 1. Little interest or pleasure in doing things: not at all 2. Feeling down, depressed, or hopeless: not at all 3. Trouble falling or staying asleep, or sleeping too much: not at all 4. Feeling tired or having little energy: several days 5. Poor appetite or overeating: not at all 6. Feeling bad about yourself - or that you are a failure or have let yourself or your family down: not at all 7. Trouble concentrating on things, such as reading the newspaper or watching television: not at all 8. Moving or speaking so slowly that other people could have noticed. Or the opposite - being so fidgety or restless that you have been moving around a lot more than usual: not at all 9. Thoughts that you would be better off or of hurting yourself in some way: not at all Total score: 1 Depression Screening Interpretation: Negative Depression Screening Done: Yes 71998 - PHQ-9 Billing: Yes Source: Developed by Drs. Sebastián Sood, Giovanna Valdez, Jack Rush and colleagues, with an educational juvencio from [employer]. Thrive Questionnaire Date Thrive assessed: 08/18/23 I am a: Patient What is your living situation today?: I have a steady place to live Within the past 12 months, did the food you bought not last and you didn't have the money to get more?: Never true Within the past 12 months, did you worry whether your food would run out before you got money to buy more?: Never true Do you have trouble getting transportation to medical appointments?: No Do you have trouble paying your heating and electricity bill?: No Do you have trouble taking care of your child, family member or friend?: No Do you have trouble with day-to-day activities such as bathing, preparing meals, shopping, managing finances, etc.?: No Are you currently unemployed and looking for a job?: No Are you interested in more education?: No Currently or been in a relationship where the following occur: I choose not to answer this question THRIVE Score: 0 AUDIT C Alcohol Use Questionnaire (AUDIT-C) 1. How often do you have a drink containing alcohol?: 2-3 times a week 2. How many drinks containing alcohol do you have on a typical day when you are drinking?: 3 or 4 3. How often do you have six or more drinks on one occasion?: Never Total Score: 4 LETY-7 AMB Questionnaire LETY-7 Date LETY - 7 assessed: 08/18/23 Feeling nervous, anxious, or on edge: 1 = Several days Not being able to stop or control worryin = Not at all Worrying too much about different things: 1 = Several days Trouble relaxin = Not at all Being so restless that it is hard to sit still: 0 = Not at all Becoming easily annoyed or irritable: 0 = Not at all Feeling afraid as if something awful might happen: 0 = Not at all Total LETY-7 score (0-4 normal; 5-9 mild; 10-14 moderate; 15-21 severe): 2 Source: Developed by Drs. Sebastián Sood, Giovanna Valdez, Jack Rsuh and colleagues, with an educational juvencio from [employer]. LETY-7 Assessment Billing LETY-7 Assessment Tool: LETY-7 Assessment 85505 Review of Systems Const Denies chills and Denies fever(s) Eyes Denies blurry vision ENT Denies vertigo, Denies dizziness and Denies sore throat Card Denies chest pain at rest, Denies chest pain with activity, Denies diaphoresis, Denies dyspnea and Denies dyspnea on exertion Resp Denies cough, Denies dyspnea, Denies dyspnea on exertion and Denies wheezing GI Denies abdominal pain, Denies melena, Denies hematochezia, Denies constipation, Denies diarrhea and Denies loose stools Denies hematuria Musc Denies numbness and Denies tingling Skin/Breast Denies lesions Neuro Denies vertigo, Denies dizziness, Denies numbness and Denies tingling Psych Denies anxiety, Denies depression, Denies homicidal ideation, Denies suicidal ideation and Denies other (substance abuse) Aller/Immun Denies wheezing Physical exam (Primary Care) Vital Signs: Last Vital Signs Pulse 67 08/18/23 07:56 BP 124/82 08/18/23 07:56 Pulse Ox 98 08/18/23 07:56 Oxygen Delivery Method Room Air 08/18/23 07:56 BMI result Body Mass Index 34.6 Tobacco/Smoking Status: Tobacco use Status Tobacco use date assessed 08/18/23 08/18/23 07:59 Patient Tobacco Use Status Never used Tobacco 08/18/23 07:59 e-Cigarette/Vaping Use Never Used 08/18/23 07:54 PHQ-9: PHQ-9 Score PHQ-9: Total score 1 08/18/23 08:01 Depression Screening Interpretation: Negative Thrive Assessment: Date of Thrive Assessment Date Thrive assessed 08/18/23 08/18/23 08:01 Currently or been in a relationship where the following occur: I choose not to answer this question Const General: cooperative Nutritional Appearance: obese Orientation/consciousness: patient oriented x3 HENMT Head: Yes normal to inspection, Yes normocephalic and Yes atraumatic Ears: TM's normal bilaterally Eyes General: appearance normal, both eyes and all related structures Alignment and Position: alignment normal and position normal Neck Other: ? left thyroid nodule Neck: Yes normal visual inspection and Yes no lymphadenopathy Resp Effort & Inspection: normal respiratory effort Auscultation: clear to auscultation bilaterally Cardio Rate: regular rate Rhythm: regular rhythm Heart sounds: S1 normal heart sound present, S2 normal heart sound present and no murmurs GI Palpation (GI): Soft to palpation and nontender Auscultation: normal bowel sounds Other: SUSAN was difficult to perform, did feel enlarged Male General Exam: Yes normal external exam Penis: normal penis Scrotum: scrotum normal, testes descended bilaterally and no inguinal hernias Testes: no testicular mass Skin Rashes: no rashes Neuro General: patient oriented x3, moves all extremities, no focal motor deficits and deep tendon reflexes 2+ bilaterally Romberg Test: Negative Psych Appearance: grossly normal Mental Status: mental status grossly normal Speech and movement: Normal speech and movement present Affect: normal affect Attitude: cooperative Thought process: Normal thought process present Thought content: Normal thought content present Insight: Good insight present (Psych) Judgement: Good judgement present (Psych) Assessment and Plan Assessment & Plan (1) Encounter for routine adult health examination: Code(s): Z00.00 - Encounter for general adult medical examination without abnormal findings (2) Physical exam: Code(s): Z00.00 - Encounter for general adult medical examination without abnormal findings Plan: Labs ordered (3) Screening PSA (prostate specific antigen): Code(s): Z12.5 - Encounter for screening for malignant neoplasm of prostate Plan: PSA ordered (4) Family history of thyroid cancer: Code(s): Z80.8 - Family history of malignant neoplasm of other organs or systems Plan: US ordered (5) Thyroid nodule: Code(s): E04.1 - Nontoxic single thyroid nodule Plan: thyroid US (6) Family hx of prostate cancer: Code(s): Z80.42 - Family history of malignant neoplasm of prostate Plan: Referred to urology, PSA ordered Plan The patient agreed to the use of a medical lab technologist for this encounter. Scribed for ABBIE Menjivar-CARLOS by Roula Rivera medical lab technologist, on 08/18/2023 at 08:15 EST. Orders: Orders Complete Blood Count Auto Diff Today Z00.00 - Encounter for general adult medical examination without abnormal findings Comprehensive [place]. Panel Fast Today Z00.00 - Encounter for general adult medical examination without abnormal findings TSH reflex Free T4 Today Z00.00 - Encounter for general adult medical examination without abnormal findings Prostate Specific Antigen Scr Today Z12.5 - Encounter for screening for malignant neoplasm of prostate US thyroid Today E04.1 - Nontoxic single thyroid nodule, Z80.8 - Family history of malignant neoplasm of other organs or systems UA CC w/rflx Micro + Cult Today Z00.00 - Encounter for general adult medical examination without abnormal findings Lipid Panel Today Z00.00 - Encounter for general adult medical examination without abnormal findings Referrals Urology Referral Z80.42 - Family history of malignant neoplasm of prostate Coding Level of Care Code Est Pt Prev Care 40-64y(99933) Diagnoses Encounter for routine adult health examination Z00.00 Physical exam Z00.00 Screening PSA (prostate specific antigen) Z12.5 Family history of thyroid cancer Z80.8 Thyroid nodule E04.1 Family hx of prostate cancer Z80.42 Additional Codes ELTY-7 Assessment Billing - LETY-7 Assessment Tool: LETY-7 Assessment 32554 ([id number])
[2023-08-18 07:56] VITALS: BP 124/82; PULSE 67; O2SAT 98; BMI 34.6
== END 2023-08-18 08:41 | disposition home or self-care (01) ==
PROVIDERS: PCP Nurse Practitioner Family; Visit Provider Nurse Practitioner Family
DX: Z00.00 Encounter for general adult medical examination without abnormal findings (principal); Z12.5 Encounter for screening for malignant neoplasm of prostate; Z80.8 Family history of malignant neoplasm of other organs or systems; E04.1 Nontoxic single thyroid nodule; Z80.42 Family history of malignant neoplasm of prostate
CPT/HCPCS: 99396

== ENCOUNTER 2023-08-18 08:40 | Outpatient (REF) | payer BC, SELFPAY ==
[2023-08-18 10:15] LABS: MANUAL DIFF FLAG NO
[2023-08-18 10:21] LABS: Appearance Urine Clear; Color Urine Yellow; Glucose Urine UA Negative (Negative); Leukocyte Esterase Urine Trace (Negative); Nitrite Urine Negative (Negative); PH 5.5 (5.0-9.0); UMIC TRIGGER UACC YES; Urine Blood Negative (Negative); Urine Ketones Negative (Negative); Urine Protein Negative (Neg-Trace)
[2023-08-18 10:22] LABS: Basophils Absolute Auto 0.1 X10*3/uL (0.0-0.2); Basophils Percent Auto 1.2 % (0-2); Eosinophils Absolute Auto 1.2 X10*3/uL (0.0-0.4); Eosinophils Percent Auto 15.3 % (0-4); Hematocrit 45.7 % (42.0-52.0); Hemoglobin 15.6 g/dl (14.0-18.0); Imm Gran Abs Auto 0.01 X10*3/uL (0.00-0.03); Imm Gran Pct Auto 0.1 % (0.0-0.4); Lymphocytes Absolute Auto 2.3 X10*3/uL (1.2-4.9); Lymphocytes Percent Auto 28.8 % (20-40); Mean Corpuscular HGB Conc 34.1 g/dl (31.0-36.0); Mean Corpuscular Hemoglobin 32.4 pg (27.0-33.0); Mean Platelet Volume 11.2 fL (9.4-12.4); Monocytes Absolute Auto 0.7 X10*3/uL (0.1-1.2); Neutrophils Absolute Auto 3.8 x10*3/uL (2.0-8.3); Neutrophils Percent Auto 46.6 % (45-73); Platelet Count 243 X10*3/uL (160-400); Red Blood Count 4.81 X10*6/uL (4.60-5.80); Red Cell Distribution Width 13.1 % (11.0-16.0); White Blood Count 8.1 X10*3/uL (4.8-10.8)
[2023-08-18 10:29] LABS: Bacteria Urine None Seen (None Seen); Hyaline Casts Urine 0-2 /LPF (0-2); RBC Urine 0-2 /HPF (0-2); Squamous Epithelial Cell Urine 0-2 /HPF (0-2); WBC Urine 0-5 /HPF (0-5)
[2023-08-18 10:55] LABS: Alanine Aminotransferase 40 U/L (0-40); Albumin Level 4.3 g/dL (3.5-5.0); Alkaline Phosphatase 52 U/L (39-117); Anion Gap 12 (12-20); Aspartate Amino Transferase 26 U/L (5-37); Bilirubin Total 0.3 mg/dL (0.0-1.0); Blood Urea Nitrogen 11 mg/dL (9-16); Calcium 9.7 mg/dL (8.4-10.2); Carbon Dioxide 28 mmol/L (22-29); Chloride 106 mmol/L (96-108); Cholesterol 168 mg/dL (<200); Estimated Glomerular Filt Rate 57; Glucose Fasting 120 mg/dL (60-99); HDL Cholesterol 52 mg/dL (>40); LDL Cholesterol Calculated 93 mg/dL (<100); Potassium 4.3 mmol/L (3.3-5.1); Sodium 142 mmol/L (135-145); TSH reflex Free T4 1.35 uIU/mL (0.32-4.0); Total Protein 7.3 g/dL (6.5-8.0); Triglycerides 115 mg/dL (<150)
[2023-08-18 10:58] LABS: Prostate Specific Antigen Scr 0.77 ng/mL (<0.05-4.0)
== END 2023-08-18 08:41 | disposition home or self-care (01) ==
LOC: HO.HMGCLDS 08:40
PROVIDERS: PCP Nurse Practitioner Family; Visit Provider Nurse Practitioner Family
DX: Z00.00 Encounter for general adult medical examination without abnormal findings (principal); Z12.5 Encounter for screening for malignant neoplasm of prostate
CPT/HCPCS: 36415; 80053; 80061; 81001; 84153; 84443; 85025

== ENCOUNTER 2023-08-23 09:42 | Outpatient (REF) | payer BC, SELFPAY ==
--- NOTE | ~2023-08-23 | US_ITS ---
EXAMINATION: US THYROID CLINICAL INFORMATION: Family history of malignant neoplasm of other organs or systems. COMPARISON: Ultrasound soft tissue head/neck thyroid dated 06/25/2021. TECHNIQUE: Linear transducer grayscale and color Doppler examination with attention to the region of the thyroid. FINDINGS: SIZE: Measurements of the thyroid lobes and nodules are given in sagittal, anteroposterior and transverse dimensions respectively. Right Thyroid Lobe: 5.13 x 1.74 x 1.61 cm, volume 7.50 mL. Previously 4.49 x 1.80 x 1.33 cm, volume 5.64 mL. Parenchyma: The gland echotexture is homogeneous. Thyroid vascularity is normal. Left Thyroid Lobe: 4.94 x 1.64 x 1.40 cm, volume 5.97 mL. Previously 4.66 x 1.84 x 1.55 cm, volume 6.94 mL. Parenchyma: The gland echotexture is homogeneous. Thyroid vascularity is normal. Isthmus: 0.34 cm in maximum AP dimension. Previously 0.38 cm. No focal thyroid nodule is seen. NODES: No lymphadenopathy is seen in the tissue surrounding the thyroid gland. US/US thyroid IMPRESSION: No suspicious thyroid nodules identified. ACR TI-RADS RECOMMENDATION REFERENCE: Ultrasound-guided fine-needle aspiration, follow up ultrasound, no further followup. * TR1 (0 point) and TR2 (2 points): No FNA or followup * TR3 (3 points): FNA if more than or equal to 2.5 cm in maximum dimension, follow up ultrasound in 1, 3 and 5 years if 1.5 to 2.4 cm in maximum dimension. * TR4 (4-6 points): FNA if more than or equal to 1.5 cm in maximum dimension, follow up ultrasound in 1, 2, 3 and 5 years if 1 to 1.4 cm in maximum dimension. * TR5 (more than or equal to 7 points): FNA if more than or equal to 1 cm in maximum dimension, follow up ultrasound every year for 5 years if 0.5 to 0.9 cm in maximum dimension. * TR3, TR4 or TR5 nodules that are below the size threshold for follow up receive no followup.
== END 2023-08-23 09:43 | disposition home or self-care (01) ==
LOC: HO.HMGCX 09:42
PROVIDERS: PCP Nurse Practitioner Family; Visit Provider Nurse Practitioner Family
DX: E04.1 Nontoxic single thyroid nodule (principal); Z80.8 Family history of malignant neoplasm of other organs or systems
CPT/HCPCS: 76536

== ENCOUNTER 2023-09-06 11:29 | Outpatient (REF) | payer BC, SELFPAY ==
[2023-09-06 13:55] LABS: Lipase 80 U/L (8-78)
[2023-09-06 14:18] LABS: Ferritin 283 ng/mL (20-250)
[2023-09-08 11:48] LABS: Carbohydrate Antigen 19-9 19 U/mL (<34)
== END 2023-09-06 11:30 | disposition home or self-care (01) ==
LOC: HO.HMGCLDS 11:29
PROVIDERS: PCP Nurse Practitioner Family; Visit Provider Nurse Practitioner Family
DX: K76.9 Liver disease, unspecified (principal); Z80.0 Family history of malignant neoplasm of digestive organs
CPT/HCPCS: 36415; 82728; 83690; 86301

== ENCOUNTER 2023-09-13 10:26 | Outpatient (REF) | payer BC, SELFPAY ==
--- NOTE | ~2023-09-13 | MR_ITS ---
EXAMINATION: MR ABDOMEN WITHOUT AND WITH CONTRAST CLINICAL INFORMATION: Family history of malignant neoplasm of digestive organs. COMPARISON: CT abdomen/pelvis 06/26/2020. TECHNIQUE: MR abdomen was performed without and with use of 10 mL intravenous Gadavist gadolinium contrast. Postcontrast images are performed in multiphase dynamic sequences. Imaging was performed in 3 planes. FINDINGS: LUNG BASES: The visualized lung bases are unremarkable. LIVER, GALLBLADDER, AND BILIARY TREE: The liver is enlarged measuring 19.5 cm craniocaudally and demonstrates loss of signal in the [id number] dual-echo images most consistent with hepatic steatosis. Otherwise, the liver is normal in morphology. There is a well-defined T2 hyperintense lesion in segment 5 of the liver (image 22 series 6) demonstrating early peripheral discontinuous enhancement with centripetal progression, most consistent with a cavernous hemangioma. PANCREAS: Preserved homogeneous precontrast T1 hyperintense signal. No focal lesion. No main ductal dilatation. No peripancreatic inflammatory changes. SPLEEN: Normal. ADRENAL GLANDS: Normal. KIDNEYS AND URETERS: The kidneys are normal in size, shape, and enhance symmetrically. Small Bosniak 1 cortical cysts, for which no imaging follow up is recommended. No hydronephrosis. No perinephric stranding. GASTROINTESTINAL TRACT: No bowel obstruction. No ascites or fluid collection. ABDOMINAL WALL: No significant hernia is appreciated. LYMPH NODES: No lymphadenopathy. VASCULAR: Unremarkable. OSSEOUS STRUCTURES: No acute or aggressive-appearing osseous findings. MR/MR abdomen wo/w con IMPRESSION: 1. No evidence of malignancy in the abdomen. 2. Hepatomegaly and hepatic steatosis.
[2023-09-13] MEDS: gadobutroL 10 ML VIAL IVPUSH (11:35)
== END 2023-09-13 10:27 | disposition home or self-care (01) ==
LOC: HO.MRI 10:26
PROVIDERS: PCP Nurse Practitioner Family; Visit Provider Nurse Practitioner Family
DX: K76.9 Liver disease, unspecified (principal); Z80.0 Family history of malignant neoplasm of digestive organs
CPT/HCPCS: 74183; A9585

== ENCOUNTER 2023-12-30 18:01 | Day surgery (SDC) | payer BC, SELFPAY ==
--- NOTE | ~2023-12-30 | XR_ITS ---
EXAMINATION: XR CHEST CLINICAL INFORMATION: Shortness of breath. COMPARISON: Chest radiograph dated May 24, 2023. TECHNIQUE: Frontal view of the chest was obtained. FINDINGS: The heart is normal in size. The lungs are clear. Pleural spaces are clear. No pneumothorax. No acute osseous abnormality. XR/XR chest 1V IMPRESSION: No acute cardiopulmonary disease. Electronically signed by: Quique Teague DO 12/30/2023 08:25 PM EDT
[2023-12-30 18:03] VITALS: BP 180/92; PULSE 79; RESP 20; TEMP 37.3; O2SAT 98; BMI 34.4
--- NOTE | 2023-12-30 18:03 | ED.SOB ---
HPI - SOB/Dyspnea General Chief Complaint: General Medical Stated Complaint: Food lodged in throat, SOB Time Seen by Provider: 12/30/23 18:14 Source: patient Mode of arrival: ambulatory Limitations: no limitations History of Present Illness ED Provider: ashley MYERS Narrative: Patient is 53 years old with history of hypertension history of dysphagia and food impaction in esophagus 3 times in last 1 month today apparently at 09:30 had steak and since then unable to swallow his saliva or liquids feel food stuck in upper chest and feels short of breath Related Data Previous Rx's ?Medication ?Instructions ?Recorded albuterol sulfate 90 mcg/actuation 1 inh inhalation QID PRN shortness 06/18/21 aerosol inhaler of breath or wheezing #6.7 grams inhalational spacing device #1 ea 08/19/21 (Aerochamber MV spacer) lisinopril 40 mg tablet 40 mg PO DAILY #90 tabs 06/16/23 metoprolol succinate 100 mg 100 mg PO DAILY #90 tabs 06/16/23 tablet,extended release 24 hr triamterene 37.5 1 tab PO QAM #30 tabs 08/16/23 mg-hydrochlorothiazide 25 mg tablet allopurinol 300 mg tablet 300 mg PO DAILY #90 tabs 10/03/23 esomeprazole magnesium 40 mg 40 mg PO BID 90 days #180 caps 12/30/23 capsule,delayed release Allergies Allergy/AdvReac Type Severity Reaction Status Date / Time Sulfa (Sulfonamide Allergy Intermediate Severe Verified 12/30/23 18:05 Antibiotics) vomiting/acid [SULFA (SULFONAMIDE reflux/SOB ANTIBIOTICS)] Review of Systems Review of Systems: Yes all other systems are reviewed and are negative [facility] Past Medical History Medical History Epidermal inclusion cyst HTN (hypertension) Surgical History History of ptosis repair H/O inguinal hernia repair Social History Social History Housing: House Patient Tobacco Use Status: Never used Tobacco Smoked in Last 30 Days: No e-Cigarette/Vaping Use: Never Used Second Hand Smoke Exposure: No Use of substances other than those prescribed or required for medical reasons: Yes Substance Use Type: Marijuana Advance Directives: No Advance Directives Information Provided: No Do you have a plan to hurt others: No Plan service: No Current occupational status: employed Current occupation: [place] [employer] Current occupational exposures/hazards: Yes Cognitive needs: No Hearing needs: No Vision needs: No Physical Exam Vital Signs: Vital Signs: Last Vital Signs Temp 98 F 12/30/23 21:19 Pulse 76 12/30/23 21:19 Resp 14 12/30/23 21:19 BP 157/106 H 12/30/23 21:19 Pulse Ox 97 12/30/23 21:19 O2 Del Method Room Air 12/30/23 21:19 BMI result Body Mass Index 34.4 Appearance: Alert. Oriented X3. No acute distress. Eyes: No pallor or icterus ENT: Pharynx normal. Oral Mucosa moist no stridor Neck: Normal inspection. Neck supple. CVS: Normal heart rate and rhythm. Pulses normal. Respiratory: No respiratory distress. Equal air entry bilateral, no wheezing/rales/rhonchi Abdomen: Soft and nontender. Bowel sounds are present, no mass palpable, no CVA tenderness Skin: Skin warm and dry. Normal skin color. Normal skin turgor. Extremities: No lower extremity edema. No calf tenderness Neuro: Oriented X 3. No motor deficit. Course Course Course Narrative: This is a Rapid Medical Exam performed in triage by Iman Rios PA-C. Full HPI, ROS and PE to be performed by primary ED provider. 53 yo M w/pmhx dysphagia, HTN, presenting to the ED c/o piece of steak stuck in throat since 930AM, now with SOB & diaphoresis. Unable to tolerate PO since, vomits shorty after PE: diaphoretic, Lungs CTA, Uvula midline, talking in complete sentences. Plan: EKG, labs, CXR Medications Administered Discontinued Medications Generic Name Dose Route Start Last Admin Trade Name Rose PRN Reason Stop Dose Admin Glucagon 1 mg 12/30/23 18:32 12/30/23 18:45 Glucagon Hcl 1 Mg Vial IVPUSH 12/30/23 18:33 1 mg ONCE ONE Administration Ondansetron HCl 4 mg 12/30/23 18:50 12/30/23 18:54 Ondansetron Hcl 4 Mg/2 Ml Vial IVPUSH 12/30/23 18:51 4 mg ONCE ONE Administration Medical Decision Making Medical Decision Making MDM Narrative: Patient with steak piece impacted in his esophagus which happened to 3 times earlier too which got resolved off its own this time not able to swallow liquids or solid impacted since 09:30 tried glucagon and EZ gas without any success case discussed with Dr. holman GI will take the patient to OR for endoscopy Lab Data MDM Lab Attestation statement: I reviewed the patient's lab results. 12/30/23 18:16 12/30/23 18:16 Labs: Lab Results 12/30/23 Range/Units 18:16 WBC 9.6 (4.8-10.8) X10*3/uL RBC 4.59 L (4.60-5.80) X10*6/uL Hgb 15.0 (14.0-18.0) g/dl Hct 42.7 (42.0-52.0) % MCV 93.0 (80.0-98.0) fL MCH 32.7 (27.0-33.0) pg MCHC 35.1 (31.0-36.0) g/dl RDW 13.3 (11.0-16.0) % Plt Count 213 (160-400) X10*3/uL MPV 10.3 (9.4-12.4) fL Immature Gran % (Auto) 0.3 (0.0-0.4) % Neut % (Auto) 58.5 (45-73) % Lymph % (Auto) 27.4 (20-40) % Atlantic % (Auto) 7.6 (2-11) % Eos % (Auto) 5.4 H (0-4) % Baso % (Auto) 0.8 (0-2) % Lymph # (Auto) 2.6 (1.2-4.9) X10*3/uL [place] # (Auto) 0.7 (0.1-1.2) X10*3/uL Eos # (Auto) 0.5 H (0.0-0.4) X10*3/uL Baso # (Auto) 0.1 (0.0-0.2) X10*3/uL Abs Immat Gran (auto) 0.03 (0.00-0.03) X10*3/uL Absolute Neuts (auto) 5.6 (2.0-8.3) x10*3/uL Absolute Nucleated RBC 0.000 (0.0-0.012) X10*3/uL Nucleated RBC % (auto) 0.0 (0.0-0.2) /100WBC Sodium 146 H (135-145) mmol/L Potassium 3.8 (3.3-5.1) mmol/L Chloride 110 H (96-108) mmol/L Carbon Dioxide 26 (22-29) mmol/L Anion Gap 14 (12-20) BUN 16 (9-16) mg/dL Creatinine 1.21 (0.5-1.4) mg/dL Estim Creat Clear Calc 89.2 Estimated GFR > 60 Random Glucose 103 (60-115) mg/dL Calcium 9.6 (8.4-10.2) mg/dL Troponin I High Sens 5.7 (<3.5-35.0) ng/L Discharge Plan Discharge Clinical Impression: Food impaction of esophagus Patient Disposition: Home, Self-Care Discharge Date/Time: 12/30/23 20:37
--- NOTE | 2023-12-30 18:05 | ECG_ITS ---
Test Reason : sob, food lodged Blood Pressure : / mmHG Vent. Rate : 076 BPM Atrial Rate : 076 BPM P-R Int : 156 ms QRS Dur : 094 ms QT Int : 404 ms P-R-T Axes : 039 -04 -05 degrees QTc Int : 454 ms Normal sinus rhythm Normal ECG When compared with ECG of 23-NOV-2021 14:03, No significant change was found Referred By: Iman Rios Electronically Signed By:CHELSEA PILLAI
[2023-12-30 18:21] LABS: MANUAL DIFF FLAG NO
[2023-12-30 18:25] LABS: Basophils Absolute Auto 0.1 X10*3/uL (0.0-0.2); Basophils Percent Auto 0.8 % (0-2); Eosinophils Absolute Auto 0.5 X10*3/uL (0.0-0.4); Eosinophils Percent Auto 5.4 % (0-4); Hematocrit 42.7 % (42.0-52.0); Imm Gran Abs Auto 0.03 X10*3/uL (0.00-0.03); Imm Gran Pct Auto 0.3 % (0.0-0.4); Lymphocytes Absolute Auto 2.6 X10*3/uL (1.2-4.9); Lymphocytes Percent Auto 27.4 % (20-40); Mean Corpuscular HGB Conc 35.1 g/dl (31.0-36.0); Mean Corpuscular Hemoglobin 32.7 pg (27.0-33.0); Mean Platelet Volume 10.3 fL (9.4-12.4); Monocytes Absolute Auto 0.7 X10*3/uL (0.1-1.2); Monocytes Percent Auto 7.6 % (2-11); Neutrophils Absolute Auto 5.6 x10*3/uL (2.0-8.3); Neutrophils Percent Auto 58.5 % (45-73); Platelet Count 213 X10*3/uL (160-400); Red Blood Count 4.59 X10*6/uL (4.60-5.80); Red Cell Distribution Width 13.3 % (11.0-16.0); White Blood Count 9.6 X10*3/uL (4.8-10.8)
[2023-12-30 18:35] LABS: Anion Gap 14 (12-20); Blood Urea Nitrogen 16 mg/dL (9-16); Calcium 9.6 mg/dL (8.4-10.2); Carbon Dioxide 26 mmol/L (22-29); Chloride 110 mmol/L (96-108); Creatinine Clr Calc Pharmacy 89.2; Estimated Glomerular Filt Rate > 60; Glucose Random 103 mg/dL (60-115); Potassium 3.8 mmol/L (3.3-5.1); Sodium 146 mmol/L (135-145)
[2023-12-30 18:43] LABS: Troponin-I High Sensitivity 5.7 ng/L (<3.5-35.0)
[2023-12-30] MEDS: glucagon HCL 1 MG VIAL IVPUSH (18:45)
--- NOTE | 2023-12-30 18:49 | PC.NURSE ---
patient a&ox3, vss, patient monitor applied nsr 90, pt has 3/10 pain, iv inserted pt medicated per order, call yap within reach, will continue to monitor
[2023-12-30] MEDS: ondansetron HCL 4 MG/2 ML VIAL IVPUSH (18:54)
--- NOTE | 2023-12-30 19:00 | PC.NURSE ---
after pt was given glucagon pt stated he felt very short of breath and wasnt able to swallow his saliva, pt stated he had nausea- dr mac was notified, pt given IVP zofran, within a short time pt stated the nausea was relieved and he felt better, pts O2 sat remained in the mid 90s the entire time and pt was speaking in full sentences/not gasping for air.
--- NOTE | 2023-12-30 19:32 | PM.GICN ---
History of Present Illness Data of Consult Service Date: 12/30/23 Requesting physician: Sam Menendez [facility] Reason for consult: dysphagia due to food impaction 53 YM with hypertension seen at [facility] [place] on 12/30/23 with dysphagia and inabilty to swallow solids or liquids since 9:30 am today Pt reports intermittent dysphagia and three episodes of food impaction over the last month which resolved spontaneously Today patient was at the [employer] and ate a steak sample (handed out on a tooth pick) at 9:30 am. Sample was hot so he gulped it down and since then unable to swallow his saliva or liquids He tried to regugitate the bolus by trying to drink [place] water Pt feel food is stuck in upper chest and felt short of breath and came to the ER. In the ED, he was treated with IV Glucaogon without resolution of his symptoms Pt reports a hx of mild heartburn for the past few years and takes TUMS and Omeprazole on a prn basis. Patient has a history of asthma in childhood and denies any cardiac or pulmonary problems, history of loud snoring or sleep. He denies problems with anesthesia. Patient takes alcohol occasionally, smokes marijuana and denies smoking cigarettes. 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 FAMILY HX: Positive for pancreatic cancer in his Mom A brother was diagnosed with colon cancer in his 60's Three brothers have been diagnosed with cancers - one had prostate cancer. Review of Systems Review of Systems: Yes all other systems are reviewed and are negative PMFSH Past Medical History Medical History Epidermal inclusion cyst HTN (hypertension) Surgical History Surgical History History of ptosis repair H/O inguinal hernia repair Social History Social History Housing: House Patient Tobacco Use Status: Never used Tobacco Smoked in Last 30 Days: No e-Cigarette/Vaping Use: Never Used Second Hand Smoke Exposure: No Use of substances other than those prescribed or required for medical reasons: Yes Substance Use Type: Marijuana Advance Directives: No Advance Directives Information Provided: No Do you have a plan to hurt others: No Plan service: No Current occupational status: employed 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 Oriented X3. No acute distress. Eyes: No pallor or icterus ENT: Pharynx normal. Oral Mucosa moist no stridor Neck: Normal inspection. Neck supple. CVS: Normal heart rate and rhythm. Pulses normal. Respiratory: No respiratory distress. Equal air entry bilateral, no wheezing/rales/rhonchi Abdomen: Soft and nontender. Bowel sounds are present, no mass palpable, no CVA tenderness Skin: Skin warm and dry. Normal skin color. Normal skin turgor. Extremities: No lower extremity edema. No calf tenderness Neuro: Oriented X 3. No motor deficit. Results Labs 12/30/23 18:16 12/30/23 18:16 Labs: Short CBC 12/30/23 Range/Units 18:16 WBC 9.6 (4.8-10.8) X10*3/uL Hgb 15.0 (14.0-18.0) g/dl Hct 42.7 (42.0-52.0) % Plt Count 213 (160-400) X10*3/uL BMP 12/30/23 18:16 Sodium 146 H Potassium 3.8 Chloride 110 H Carbon Dioxide 26 BUN 16 Creatinine 1.21 Calcium 9.6 Assessment and Plan (1) Dysphagia: Status: Acute (2) Food impaction of esophagus: Status: Acute (3) GERD (gastroesophageal reflux disease): Status: Acute Plan 53 YM with hypertension seen at [facility] on 12/30/23 with dysphagia and inabilty to swallow solids or liquids since 9:30 am today Pt reports intermittent dysphagia and three episodes of food impaction over the last month which resolved spontaneously Today patient was at [place] [employer] and ate a steak sample (handed out on a tooth pick) at 9:30 am. Dysphagia with food impaction likely due to esophageal stricture, motility disorder or EOE RECOMMENDATIONS: Proceed with urgent upper endoscopy today for removal of esophageal food bolus. EGD procedure and potential complications including bleeding, perforation, reaction to anesthetic and aspiration were reviewed with the patient and his . Procedures Date of Service Date of Service: 12/31/23
[2023-12-30 19:53] VITALS: BP 174/96; PULSE 74; RESP 12; O2SAT 98
[2023-12-30 20:27] VITALS: BP 165/110; PULSE 72; RESP 18; TEMP 36.4; O2SAT 98
--- NOTE | 2023-12-30 20:29 | P.CONAN_ITS ---
HPI - Anesthesia Eval Consult details Narrative: esophageal food bolus PMFSH Active Problems Active Problems: All Active Problems GERD (gastroesophageal reflux disease) (Acute) Food impaction of esophagus (Acute) Dysphagia (Acute) Liver lesion (Acute) Family history of pancreatic cancer (Acute) Family hx of prostate cancer (Acute) Thyroid nodule (Acute) Upper respiratory infection (Acute) Sprain of left hip (Acute) Vertigo (Acute) Serum calcium elevated (Acute) Epidermal inclusion cyst (Acute) Abdominal pain (Acute) Idiopathic gout, unspecified site (Acute) Hypertension (Acute) Screening for colon cancer (Acute) Family history of thyroid cancer (Acute) Mass of axilla (Acute) Shortness of breath (Acute) Family history of colon cancer (Acute) Physical exam (Acute) Screening PSA (prostate specific antigen) (Acute) Past Medical History Medical History Epidermal inclusion cyst HTN (hypertension) Family History Family history of problems with anesthesia: No Surgical History Surgical History History of ptosis repair H/O inguinal hernia repair History of Problems with Anesthesia: No Social History Social History Housing: House Patient Tobacco Use Status: Never used Tobacco Smoked in Last 30 Days: No e-Cigarette/Vaping Use: Never Used Second Hand Smoke Exposure: No Use of substances other than those prescribed or required for medical reasons: Yes Substance Use Type: Marijuana Advance Directives: No Advance Directives Information Provided: No Do you have a plan to hurt others: No Plan service: No Current occupational status: employed Current occupation: [employer] Current occupational exposures/hazards: Yes Cognitive needs: No Hearing needs: No Vision needs: No Meds Allergies Allergy/AdvReac Type Severity Reaction Status Date / Time Sulfa (Sulfonamide Allergy Intermediate Severe Verified 12/30/23 18:05 Antibiotics) vomiting/acid [SULFA (SULFONAMIDE reflux/SOB ANTIBIOTICS)] Exam Height,Weight and Vital Signs: Height 5 ft 10 in Weight 108.862 kg Last Vital Signs Temp 99.1 F 12/30/23 18:03 Pulse 74 12/30/23 19:53 Resp 12 12/30/23 19:53 BP 174/96 H 12/30/23 19:53 Pulse Ox 98 12/30/23 19:53 O2 Del Method Room Air 12/30/23 19:53 Pertinent Lab Results Pertinent Lab Results: Laboratory Tests 12/30/23 18:16 WBC 9.6 RBC 4.59 L Hgb 15.0 Hct 42.7 MCV 93.0 MCH 32.7 MCHC 35.1 RDW 13.3 Plt Count 213 MPV 10.3 Immature Gran % (Auto) 0.3 Neut % (Auto) 58.5 Lymph % (Auto) 27.4 Wallace % (Auto) 7.6 Eos % (Auto) 5.4 H Baso % (Auto) 0.8 Lymph # (Auto) 2.6 Wallace # (Auto) 0.7 Eos # (Auto) 0.5 H Baso # (Auto) 0.1 Abs Immat Gran (auto) 0.03 Absolute Neuts (auto) 5.6 Absolute Nucleated RBC 0.000 Nucleated RBC % (auto) 0.0 Sodium 146 H Potassium 3.8 Chloride 110 H Carbon Dioxide 26 Anion Gap 14 BUN 16 Creatinine 1.21 Estim Creat Clear Calc 89.2 Estimated GFR > 60 Random Glucose 103 Calcium 9.6 Troponin I High Sens 5.7 Airway Mallampati Class: II TM Dist: >3cm Neck ROM: Full Loose/Missing/Broken Teeth: No Heart: RRR Lungs: CTA Assessment and Plan Assessment Anesthesia Assessment: Anesthesia Plan Discussed and Chart Reviewed Final Anesthetic Review Family History of Problems with Anesthesia: No History of Problems with Anesthesia: No NPO: No ASA Class: II and Emergency Final Preanesthetic Review: No Changes in Pt Med Stat, Meds/Allgs Chart Reviewed, Consent Obtained/Reviewed and Anes Risks/Benef Reviewed Patient Risk: Intermediate Procedure Risk: Low Anesthetic Plan Anesthetic Plan: MAC: Disposition: Standard PACU
--- NOTE | 2023-12-30 20:59 | W.PM.OPN ---
Operative Note Operative Note Date of Service: 12/30/23 Narrative: FLEXIBLE TRANSORAL UPPER GASTROINTESTINAL ENDOSCOPY WITH BIOPSIES AND FOREIGN BODY REMOVAL Pre-op diagnosis: Dysphagia, meat impaction Post-op diagnosis: Esophagitis, esophageal stricture, hiatal hernia, Endoscopist:? Paty Dupree MD Anesthesia:?MAC UPPER ENDOSCOPY Consent: Indications for the procedure and potential complications of bleeding, perforation, reaction to medications and missed diagnosis were discussed with the patient and informed consent was obtained. Instrument: Olympus GIF H 190 mid size upper endoscope Monitoring: Vital signs and clinical assessment, continuous EKG monitoring, Pulse oximetry, Carbon Dioxide monitoring and blood pressure monitoring were done throughout the procedure. Procedure: The patient was placed in the left lateral decubitis position and pre-procedure medications were administered and a bite block was placed. The endoscope was inserted into the mouth and advanced under direct vision to the third part of duodenum. A careful inspection was made as the upper endoscope was withdrawn including a retroflexed examination of the proximal stomach; Findings and interventions are described below. Findings: Larynx: Normal Esophagus: A large food bolus seen impacted at GE junction. The food bolus passed easily into the stomach on air insufflation and gentle pressure with the endoscope. GE junction at 38 cms, hiatal hernia 38 to 40 cms. Grade B erosive esophagitis with linear erosions from 35 to 38 cms with mild stricture at the GE junction - biopsies were obtained Stomach: Normal gastric mucosa. Grade 3 flap valve on retroflexed examination of the cardia. Duodenum: Normal bulb and descending duodenum Intervention: Biopsies as noted above Impression and Post Procedure Diagnosis: Endoscopy Findings: ESOPHAGUS: Esophgeal obstruction due to large food bolus which passed easily into the stomach on air insufflation and gentle pressure with the endoscope. Grade B erosive esophagitis with mild stricture at GE junction Plan: Increase Esomeprazole 40 mg twice daily I will contact the patient with biopsy results. Repeat EGD in 3-4 months to FU on erosive esophagitis Above findings were reviewed with the patient and relevant handouts were given and the discharge area. BIOPSIES SHOWED: Esophagus, stricture, biopsy: - Cardiac-type mucosa with moderate chronic active inflammation; no intestinal metaplasia seen. - Ulcerative esophagitis; no atypia or fungi identified
[2023-12-30 21:04] VITALS: BP 156/94; PULSE 79; RESP 16; TEMP 36.4; O2SAT 96
[2023-12-30 21:19] VITALS: BP 157/106; PULSE 76; RESP 14; TEMP 36.6; O2SAT 97
== END 2023-12-30 21:20 | disposition home or self-care (01) ==
LOC: HO.ED 19:56 → HO.SSS 20:28
PROVIDERS: Internal Medicine Gastroenterology; Physician Assistant; Emergency Provider Internal Medicine; PCP Nurse Practitioner Family; Visit Provider Internal Medicine
PROC: 0DJ08ZZ Inspection of Upper Intestinal Tract, Via Natural or Artificial Opening Endoscopic (ICD-10-PCS; CPT 43235; principal; 2023-12-30 20:15)
DX: T18.128A Food in esophagus causing other injury, initial encounter (principal); W44.F3XA Food entering into or through a natural orifice, initial encounter; K22.2 Esophageal obstruction; K22.10 Ulcer of esophagus without bleeding; K44.9 Diaphragmatic hernia without obstruction or gangrene; K21.9 Gastro-esophageal reflux disease without esophagitis; R13.10 Dysphagia, unspecified; I10 Essential (primary) hypertension; Y93.9 Activity, unspecified; Y92.9 Unspecified place or not applicable; Y99.9 Unspecified external cause status; Z79.899 Other long term (current) drug therapy; F12.90 Cannabis use, unspecified, uncomplicated; K76.9 Liver disease, unspecified; E04.1 Nontoxic single thyroid nodule; Z80.0 Family history of malignant neoplasm of digestive organs
CPT/HCPCS: 43239; 36415; 71045; 80048; 84484; 85025; 88305; 88312; 93005; 96374; 96375; 99284; 99285; J1610; J2405; J2704; J3010

== ENCOUNTER → 2023-12-30 20:24 | Outpatient (BNV) | payer BC, SELFPAY | PROVIDERS: Emergency Provider Internal Medicine; PCP Nurse Practitioner Family; Visit Provider Internal Medicine Gastroenterology | DX: R13.10 Dysphagia, unspecified (principal); T18.128A Food in esophagus causing other injury, initial encounter; W44.F3XA Food entering into or through a natural orifice, initial encounter; K21.00 Gastro-esophageal reflux disease with esophagitis, without bleeding | CPT/HCPCS: 43239; 43247; 99231 ==

== ENCOUNTER 2024-01-30 09:18 | Outpatient (AMB) | payer BC, SELFPAY ==
--- NOTE | 2024-01-30 09:21 | AM.OFFWIN_ITS ---
Intake Vital Signs 01/30/24 09:23 Weight 239 lb BP 160/110 H Blood Pressure Location Lt brachial Position Sitting Pulse 66 Pulse Source Pulse Oximeter Temp 98.1 F Temp Source Oral Pulse Oximetry (%) 97 Oxygen Delivery Method Room Air Intake Visit Reasons: EP Rt ear pain Intake Note: Patient here for right ear pain that started yesterday. Patient Tobacco Use Status: Never used Tobacco Allergies Sulfa (Sulfonamide Antibiotics) [SULFA (SULFONAMIDE ANTIBIOTICS)] Allergy (Intermediate, Verified 01/30/24 09:23) Severe vomiting/acid reflux/SOB Do you need a note to return to daycare/school/sports/work: No HPI HPI Comments History of Present Illness Details Patient is a 53-year-old female complaining of 1 day of right ear pain. He says the pain woke him up in the middle of the night last night and he had some subjective fever and chills. Denies any change in his hearing. He tells me that a number of years ago he burst a eardrum because he did not take care of an ear infection. He states this pain feels very similar to when that happened. [facility] Medical History (Updated 01/30/24 @ 09:41 by Hawa Mckeon PA-C) Ulcerative esophagitis Epidermal inclusion cyst HTN (hypertension) Surgical History History of ptosis repair H/O inguinal hernia repair Social History Housing: House Patient Tobacco Use Status: Never used Tobacco e-Cigarette/Vaping Use: Never Used Second Hand Smoke Exposure: No Substance Use Type: Marijuana service: No Current occupational status: employed Current occupation: [employer] Current occupational exposures/hazards: Yes Cognitive needs: No Hearing needs: No Vision needs: No Review of Systems Const All systems reviewed & are unremarkable except as noted in HPI and below Physical Exam Vital Signs: Last Vital Signs Temp 98.1 F 01/30/24 09:23 Pulse 66 01/30/24 09:23 BP 160/110 H 01/30/24 09:23 Pulse Ox 97 01/30/24 09:23 Oxygen Delivery Method Room Air 01/30/24 09:23 Const General: cooperative, healthy appearing, comfortable and no acute distress Orientation/consciousness: patient oriented x3 HEENT Head: Yes normal to inspection, Yes No palpable skull fracture present and Yes normocephalic Ears: hearing grossly normal bilaterally, external ears normal, TM's normal bilaterally, EAC's normal, mastoids normal (no TTP) on the right and Abnormal EAC present erythema on the right, edema on the right, EAC tenderness on the right and otic discharge bloody on the right General nose exam: Normal external nose present Face and sinus: Yes normal facial exam Mouth: Normal oral and palatal mucosa present Teeth and gingiva: dentition normal Throat: Yes posterior oropharynx normal Eyes General: appearance normal, both eyes and all related structures Neck Neck: Yes normal visual inspection, Yes full ROM, Yes no lymphadenopathy, Yes no meningeal signs, Yes trachea midline and Yes supple Resp Effort & Inspection: normal respiratory effort and able to speak in complete sentences Skin General skin exam: no rashes or lesions noted Neuro General: patient oriented x3 and no meningeal signs Assessment & Plan Assessment & Plan (1) Otitis externa of right ear: Code(s): H60.91 - Unspecified otitis externa, right ear Qualifiers: Otitis externa type: other infective Chronicity: acute Qualified Code(s): H60.391 - Other infective otitis externa, right ear Plan: Due to the swelling, I could not see the entire tympanic membrane but what I could see was marquez and clear with a reflective light and looked completely normal. This is likely just a otitis externa so we will treat it with drops. Recommended patient follow up with me if it is not gradually feeling better over the next 3-4 days. If it is getting worse, I will send an oral antibiotic. Plan See above Medications: New [id number] 3.5-10,000-1 mg/mL-unit/mL-% 4 drps otic (ear) right Q8H 10 days 10 mL 0RF Coding Level of Care Code Est Pt Level 3 (96833) Diagnoses Other infective acute otitis externa of right ear H60.391 Otitis externa type: other infective Chronicity: acute
[2024-01-30 09:23] VITALS: BP 160/110; PULSE 66; TEMP 36.7; O2SAT 97
== END 2024-01-30 09:45 | disposition home or self-care (01) ==
PROVIDERS: PCP Nurse Practitioner Family; Visit Provider Physician Assistant
DX: H60.391 Other infective otitis externa, right ear (principal)

== ENCOUNTER → 2024-01-30 09:18 | Outpatient (BNVA) | payer BC, SELFPAY | PROVIDERS: PCP Nurse Practitioner Family; Visit Provider Physician Assistant ==

== ENCOUNTER 2024-06-04 11:53 | Day surgery (SDC) | payer BC, SELFPAY ==
--- NOTE | 2024-06-01 10:34 | HO.ANESPROP2 ---
Documented by User: Nelli Purcell NP 06/01/24 10:34 HPI - Anesthesia Eval Consult details Narrative: 54yo M for Upper Endoscopy PMFSH Active Problems Active Problems: All Active Problems Otitis externa of right ear (Acute) GERD (gastroesophageal reflux disease) (Acute) Liver lesion (Acute) Family history of pancreatic cancer (Acute) Family hx of prostate cancer (Acute) Thyroid nodule (Acute) Upper respiratory infection (Acute) Sprain of left hip (Acute) Vertigo (Acute) Serum calcium elevated (Acute) Epidermal inclusion cyst (Acute) Abdominal pain (Acute) Idiopathic gout, unspecified site (Acute) Hypertension (Acute) Screening for colon cancer (Acute) Family history of thyroid cancer (Acute) Mass of axilla (Acute) Shortness of breath (Acute) Family history of colon cancer (Acute) Physical exam (Acute) Screening PSA (prostate specific antigen) (Acute) Past Medical History Medical History Ulcerative esophagitis Epidermal inclusion cyst HTN (hypertension) Family History Family history of problems with anesthesia: No Surgical History Surgical History History of ptosis repair H/O inguinal hernia repair History of Problems with Anesthesia: No Social History Social History Housing: House Patient Tobacco Use Status: Never used Tobacco e-Cigarette/Vaping Use: Never Used Second Hand Smoke Exposure: No Use of substances other than those prescribed or required for medical reasons: Yes Substance Use Type: Marijuana Substance Use Type Other:: 3-4x/wk last smoked one week ago Are you DNR?: No Advance Directives: No Advance Directives Information Provided: Yes service: No Current occupational status: employed Current occupation: [employer] Current occupational exposures/hazards: Yes Cognitive needs: No Hearing needs: No Vision needs: No Meds Allergies Allergy/AdvReac Type Severity Reaction Status Date / Time Sulfa (Sulfonamide Allergy Intermediate Severe Verified 06/04/24 13:01 Antibiotics) vomiting/acid [SULFA (SULFONAMIDE reflux/SOB ANTIBIOTICS)] Assessment and Plan Assessment Anesthesia Assessment: Chart Reviewed Final Anesthetic Review Family History of Problems with Anesthesia: No History of Problems with Anesthesia: No Documented by User: Jacquelyn Reddy MD 06/04/24 13:26 PMFSH Past Medical History Medical History Ulcerative esophagitis Epidermal inclusion cyst HTN (hypertension) Surgical History Surgical History History of ptosis repair H/O inguinal hernia repair Social History Social History Housing: House Patient Tobacco Use Status: Never used Tobacco e-Cigarette/Vaping Use: Never Used Second Hand Smoke Exposure: No Use of substances other than those prescribed or required for medical reasons: Yes Substance Use Type: Marijuana Substance Use Type Other:: 3-4x/wk last smoked one week ago Are you DNR?: No Advance Directives: No Advance Directives Information Provided: Yes service: No Current occupational status: employed Current occupation: [employer] Current occupational exposures/hazards: Yes Cognitive needs: No Hearing needs: No Vision needs: No Meds Allergies Allergy/AdvReac Type Severity Reaction Status Date / Time Sulfa (Sulfonamide Allergy Intermediate Severe Verified 06/04/24 13:01 Antibiotics) vomiting/acid [SULFA (SULFONAMIDE reflux/SOB ANTIBIOTICS)] Exam Airway Mallampati Class: III (full faulkner) TM Dist: >3cm Neck ROM: Full Loose/Missing/Broken Teeth: No Heart: RRR Lungs: CTA Assessment and Plan Assessment Anesthesia Assessment: Anesthesia Plan Discussed Final Anesthetic Review NPO: Yes ASA Class: II Final Preanesthetic Review: Meds/Allgs Chart Reviewed, Consent Obtained/Reviewed and Anes Risks/Benef Reviewed Patient Risk: Low Procedure Risk: Intermediate Anesthetic Plan Anesthetic Plan: MAC: Disposition: Standard PACU
[2024-06-04 13:01] VITALS: BMI 34.5
[2024-06-04 13:04] VITALS: BP 141/95; PULSE 82; RESP 16; TEMP 37; O2SAT 95
--- NOTE | 2024-06-04 13:24 | MHC.SHP ---
Pre-Procedural Eval Section A - 24 Hr Update-Section A only Date of Service: 06/04/24 The patient is an INPATIENT: No The patient has been examined within 24 hours of the surgical procedure. The History & Physical has been completed within 30 days and I have reviewed it.: No Section B - Complete if H&P > 30 days Chief Complaint: Dysphagia, FU of erosive esophagitis Relevant Family History (Specify if Yes): Yes Relevant Social History: None Present Medications: see Short Stay Collaborative assessment Medical History: Significant History (Epidermal inclusion cyst HTN (hypertension)) History of Previous Operations: Relevant previous surgery/procedure and date(s) (History of ptosis repair H/O inguinal hernia repair) Allergies: Allergies Allergy/AdvReac Type Severity Reaction Status Date / Time Sulfa (Sulfonamide Allergy Intermediate Severe Verified 06/04/24 13:01 Antibiotics) vomiting/acid [SULFA (SULFONAMIDE reflux/SOB ANTIBIOTICS)] Review of Systems Sugical H&P ROS: Negative: Constitution, Cardiovascular, Respiratory and Gastrointestinal Exam Surgical H&P Exam: Normal: Heart, Normal: Lungs, Normal: Extremities and Normal: Abdomen Plan Diagnosis/Plan: Unchanged I have reviewed the history and physical and performed a pertinent physical examination on my patient. No changes have occurred unless specified. Time Spent With Patient Time: Total time managing care of this patient today ____ minutes.
--- NOTE | 2024-06-04 13:44 | W.PM.OPN ---
Operative Note Operative Note Date of Service: 06/04/24 Narrative: FLEXIBLE TRANSORAL UPPER GASTROINTESTINAL ENDOSCOPY WITH BIOPSIES Pre-op diagnosis: GERD, hx of food impaction (pt denies symptoms of dysphagia for the past several weeks) Post-op diagnosis: GERD, Hiatal hernia, Gastritis, Endoscopist:? Paty Dupree MD Anesthesia:?MAC UPPER ENDOSCOPY Consent: Indications for the procedure and potential complications of bleeding, perforation, reaction to medications and missed diagnosis were discussed with the patient and informed consent was obtained. Instrument: Olympus GIF H 190 mid size upper endoscope Monitoring: Vital signs and clinical assessment, continuous EKG monitoring, Pulse oximetry, Carbon Dioxide monitoring and blood pressure monitoring were done throughout the procedure. Procedure: The patient was placed in the left lateral decubitis position and pre-procedure medications were administered and a bite block was placed. The endoscope was inserted into the mouth and advanced under direct vision to the third part of duodenum. A careful inspection was made as the upper endoscope was withdrawn including a retroflexed examination of the proximal stomach; Findings and interventions are described below. Findings: Larynx: Normal Esophagus: GE junction at 38 cms, small hiatal hernia 38 to 40 cms. A 1 cms tongue of possible Hurtado's at GE junction - biopsies were obtained. Mildly tortuous esophagus without stricture or ring Stomach: Mild gastric antral erythema - biopsies were obtained from the antrum. Grade 2 flap valve on retroflexed examination of the cardia. Duodenum: Normal bulb and descending duodenum Intervention: Biopsies as noted above Impression and Post Procedure Diagnosis: Endoscopy Findings: ESOPHAGUS: Small hiatal hernia, possible Hurtado's - biopsied STOMACH: Mild antral gastritis DUODENUM: Normal Plan: Pt has a FU appointment on 06/14/[address] Dupree Pt advised to continue Esomperazole 40 mg daily for GERD. Above findings were reviewed with the patient and relevant handouts were given and the discharge area.
[2024-06-04 13:48] VITALS: BP 111/67; PULSE 85; RESP 18; TEMP 37.3; O2SAT 97
[2024-06-04 14:00] VITALS: BP 127/85; PULSE 88; RESP 16; O2SAT 96
[2024-06-04 14:13] VITALS: BP 130/94; PULSE 87; RESP 16; TEMP 36.8; O2SAT 95
== END 2024-06-04 14:29 | disposition home or self-care (01) ==
PROVIDERS: PCP Nurse Practitioner Family; Visit Provider Internal Medicine Gastroenterology
PROC: 0DJ08ZZ Inspection of Upper Intestinal Tract, Via Natural or Artificial Opening Endoscopic (ICD-10-PCS; CPT 43235; principal; 2024-06-04 13:50)
DX: K21.9 Gastro-esophageal reflux disease without esophagitis (principal); K29.50 Unspecified chronic gastritis without bleeding; K44.9 Diaphragmatic hernia without obstruction or gangrene; M10.9 Gout, unspecified; Z79.899 Other long term (current) drug therapy; Z88.2 Allergy status to sulfonamides; Z80.0 Family history of malignant neoplasm of digestive organs
CPT/HCPCS: 43239; 88305; 88313; 88342; J2003; J2250; J2704

== ENCOUNTER → 2024-06-04 11:53 | Outpatient (BNV) | payer BC, SELFPAY | PROVIDERS: PCP Nurse Practitioner Family; Visit Provider Internal Medicine Gastroenterology | DX: K21.9 Gastro-esophageal reflux disease without esophagitis (principal); K29.70 Gastritis, unspecified, without bleeding | CPT/HCPCS: 43239 ==

== ENCOUNTER 2024-06-13 08:33 | Outpatient (REF) | payer BC, SELFPAY ==
[2024-06-13 12:10] LABS: Influenza A PCR NEGATIVE (Negative); Influenza B PCR NEGATIVE (Negative); Resp Syncy Virus RNA Qual PCR NEGATIVE (Negative); SARS COV2 PCR INHOUSE NEGATIVE (Negative)
== END 2024-06-13 08:34 | disposition home or self-care (01) ==
LOC: HO.LNP 08:33
PROVIDERS: PCP Nurse Practitioner Family; Visit Provider Physician Assistant
DX: J11.1 Influenza due to unidentified influenza virus with other respiratory manifestations (principal)
CPT/HCPCS: 0241U

== ENCOUNTER 2024-06-13 08:33 | Outpatient (AMB) | payer BC, SELFPAY ==
[2024-06-13 08:57] VITALS: BP 150/100; PULSE 62; TEMP 37; O2SAT 98; BMI 35.3
--- NOTE | 2024-06-13 08:57 | AM.OFFWIN_ITS ---
Intake Vital Signs 06/13/24 08:57 Height 5 ft 10 in Weight 246 lb BMI 35.3 BP 150/100 H Blood Pressure Location Rt brachial Position Sitting Pulse 62 Pulse Source Pulse Oximeter Temp 98.6 F Temp Source Oral Pulse Oximetry (%) 98 Oxygen Delivery Method Room Air Intake Visit Reasons: EP Sinus infection? Intake Note: Patient here for chills, sinus pressure, cough that started over the weekend. Patient Tobacco Use Status: Never used Tobacco Allergies Sulfa (Sulfonamide Antibiotics) [SULFA (SULFONAMIDE ANTIBIOTICS)] Allergy (Intermediate, Verified 06/13/24 09:02) Severe vomiting/acid reflux/SOB Do you need a note to return to daycare/school/sports/work: No HPI HPI Comments History of Present Illness Details Patient is a 54yo M who presents to office with sinus congestion and pressure He said onset Tuesday with cold like symptoms He said congestion has turned to fever/chills Tylenol without rekief Onset sinus pressure under eyes bilaterally and felt last night that his nose was on fire + cough with green/yellow phlegm Feels like symptoms settling into chest He said ears feel clogged, no pain, 0/[address] on Tuesday but that has improved He said some sinus ressure remaining No SOB or CP + body aches and fatiigue onset last nig ht Has also been doing Benadrul for decongestant He is taking his BP meds but took an OTC cold medicine like mucinex Advised to monitor BP [facility] Medical History (Updated 06/13/24 @ 09:19 by Radha Madrid PA-C) Ulcerative esophagitis Epidermal inclusion cyst HTN (hypertension) Surgical History (Updated 06/08/24 @ 14:05 by Elise Doll) History of esophagogastroduodenoscopy (EGD) History of ptosis repair H/O inguinal hernia repair Social History Housing: House Patient Tobacco Use Status: Never used Tobacco e-Cigarette/Vaping Use: Never Used Second Hand Smoke Exposure: No Substance Use Type: Marijuana service: No Current occupational status: employed Current occupation: [employer] Current occupational exposures/hazards: Yes Cognitive needs: No Hearing needs: No Vision needs: No Review of Systems Const Reports chills, Reports fatigue, Reports fever(s) and Reports headache(s) Eyes Denies change in vision ENT Denies dizziness, Denies otalgia, Reports headache(s), Reports nasal congestion, Reports sinus pain, Reports sore throat and Denies tongue swelling Card Denies chest pain and Denies dyspnea Resp Reports change in phlegm color, Reports cough and Denies dyspnea GI Denies abdominal pain Musc Denies myalgias Neuro Denies dizziness and Reports headache(s) Endo Reports fatigue Aller/Immun Denies tongue swelling Physical Exam Vital Signs: Last Vital Signs Temp 98.6 F 06/13/24 08:57 Pulse 62 06/13/24 08:57 BP 150/100 H 06/13/24 08:57 Pulse Ox 98 06/13/24 08:57 Oxygen Delivery Method Room Air 06/13/24 08:57 BMI result Body Mass Index 35.3 General: Non-toxic, NAD. Speaking full sentences. Skin: Warm dry throughout Eye: EOMI HENT: Airway patent. Uvula midline. +pharyngeal erythema without exudates or edema. No [facility]. No large effusion behind TM. Bilateral canals clear. TM non-erythematous, non- bulging. No TM perforation or hemotympanum noted. Respiratory: CTA bilaterally. No wheezes, rales or rhonchi Cardiac: RRR. No murmur MSK: Full ROM extremities. Neurology: Alert. No aphasia or facial droop. Gait without abnormality Psych: Good mood and affect Assessment & Plan Assessment & Plan (1) Influenza-like illness: Code(s): J11.1 - Influenza due to unidentified influenza virus with other respiratory manifestations Plan: Patient seen and evaluated. We discussed increasing fluids, fever contorl Discussed HTN and he will monitor and avoid OTC decongestants that might raise it He will trial benadryl at night with tesalon during dayCall with concerns Patient gave verbal understanding and had no additional questions or concerns at time of discharge All questions answered Orders: Orders SARS-CoV2/FLU/RSV Today J11.1 - Influenza due to unidentified influenza virus with other respiratory manifestations Medications: New benzonatate 200 mg PO BID-TID PRN 20 caps 0RF cough Coding Level of Care Code Est Pt Level 3 (86246) Diagnoses Influenza-like illness J11.1
== END 2024-06-13 09:49 | disposition home or self-care (01) ==
PROVIDERS: PCP Nurse Practitioner Family; Visit Provider Physician Assistant
DX: J11.1 Influenza due to unidentified influenza virus with other respiratory manifestations (principal)

== ENCOUNTER 2024-06-14 11:20 | Outpatient (REF) | payer BC, SELFPAY ==
[2024-06-14 13:00] LABS: Prothrombin Time 12.2 SEC (10.9-12.4)
[2024-06-14 13:23] LABS: Alanine Aminotransferase 51 U/L (0-40); Albumin Level 4.3 g/dL (3.5-5.0); Alkaline Phosphatase 72 U/L (39-117); Aspartate Amino Transferase 35 U/L (5-37); Bilirubin Direct 0.3 mg/dL (0.0-0.5); Bilirubin Total 0.8 mg/dL (0.0-1.0)
[2024-06-21 15:32] LABS: FIB-ALT 42 U/L (9-46); FIB-Alpha-2-Macroglobulin 152 mg/dL (106-279); FIB-Apolipoprotein A1 179 mg/dL (94-176); FIB-GGT 95 U/L (3-95); FIB-Haptoglobin 241 mg/dL (43-212); FIB-Total Bilirubin 0.7 mg/dL (0.2-1.2); Liver Fibrosis Score 0.15; Liver Fibrosis Stage F0; Nec Inflam Act Grade A0-A1; Nec Inflam Act Score 0.19
== END 2024-06-14 11:21 | disposition home or self-care (01) ==
LOC: HO.LAB 11:20
PROVIDERS: PCP Nurse Practitioner Family; Visit Provider Internal Medicine Gastroenterology
DX: K76.0 Fatty (change of) liver, not elsewhere classified (principal); K21.00 Gastro-esophageal reflux disease with esophagitis, without bleeding; Z79.899 Other long term (current) drug therapy
CPT/HCPCS: 36415; 80076; 81596; 85610

== ENCOUNTER 2024-06-14 11:20 | Outpatient (AMB) | payer BC, SELFPAY ==
[2024-06-14 11:23] VITALS: BP 136/90; PULSE 97; O2SAT 99; BMI 35.3
--- NOTE | 2024-06-14 11:23 | MHC.OFFVIS ---
Vital Signs 06/14/24 11:23 Height 5 ft 10 in Weight 246 lb BMI 35.3 BP 136/90 H Blood Pressure Location Lt brachial Position Sitting Pulse 97 Pulse Oximetry (%) 99 Oxygen Delivery Method Room Air Intake Visit Reasons: S/P EGD; Dr. Dupree Intake Note: Patient follow up for EGD result. Patient cc: scratching/discomfort feeling after his EGD procedure. [employer] Consultant Required: No Accompanied by: Self / Same As Patient Allergies Sulfa (Sulfonamide Antibiotics) (SULFA (SULFONAMIDE ANTIBIOTICS)) Allergy (Intermediate, Verified 12/13/24 11:17) Severe vomiting/acid reflux/SOB Medication List - Last Reconciled 06/14/24 by Paty uDpree MD albuterol sulfate 90 mcg/actuation 1 inh inhalation QID PRN allopurinol 300 mg PO DAILY benzonatate 200 mg PO BID-TID PRN esomeprazole magnesium 40 mg PO BID 90 days inhalational spacing device (Aerochamber MV spacer) As directed lisinopril 40 mg PO DAILY metoprolol succinate ER 100 mg PO DAILY triamterene-hydrochlorothiazid 37.5-25 mg 1 tab PO QAM HPI HPI S/P EGD; Dr. Dupree: Details: GI clinic visit for this 54 YM for FU of esophagitis TODAY'S VISIT: Pt is accompanied by his Patient reports scratching/discomfort feeling after his EGD procedure. Patient denies symptoms of heartburn as long as he takes the esomeprazole. Denies dysphagia, nausea, vomiting, change in appetite or weight. Denies recent change in bowel habits, constipation, diarrhea, black stools or rectal bleeding. Patient has hypertension, asthma, kidney stones and gallstones and denies major cardiac problems, loud snoring or sleep apnea Denies problems with anesthesia in the past. Denies being on chronic anticoagulation. FAMILY HX: Positive for pancreatic cancer in his Mom at age 60 A brother was diagnosed with colon cancer in his 60's Three brothers have been diagnosed with cancers - prostate cancer, kidney cancer, thyroid and throat cancers [facility] IM[facility]ING STUDIES: 09/2023 ABD MRI SHOWED: 1. No evidence of malignancy in the abdomen. 2. Hepatomegaly and hepatic steatosis. 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 BIOPSIES SHOWED: A. Stomach, antrum, biopsy: Gastric antral mucosa within normal limits; negative for Helicobacter pylori, intestinal metaplasia and dysplasia. B. Gastroesophageal junction, biopsy: Squamocolumnar junctional mucosa with mild chronic inactive inflammation and reactive epithelial changes; negative for intestinal metaplasia and dysplasia. PAST GI HISTORY BY REVIEW OF MEDICAL RECORDS: 12/2023 PT WAS SEEN AT [facility] ED WITH DYSPHAGIA: Reason for consult: dysphagia due to food impaction 53 YM with hypertension seen at [facility] ED on 12/30/23 with dysphagia and inabilty to swallow solids or liquids since 9:30 am today Pt reports intermittent dysphagia and three episodes of food impaction over the last month which resolved spontaneously Today patient was at the [employer] E and ate a steak sample (handed out on a tooth pick) at 9:30 am. Sample was hot so he gulped it down and since then unable to swallow his saliva or liquids He tried to regugitate the bolus by trying to drink [place] water Pt feel food is stuck in upper chest and felt short of breath and came to the ER. In the ED, he was treated with IV Glucaogon without resolution of his symptoms Pt reports a hx of mild heartburn for the past few years and takes TUMS and Omeprazole on a prn basis. Patient has a history of asthma in childhood and denies any cardiac or pulmonary problems, history of loud snoring or sleep. He denies problems with anesthesia. Patient takes alcohol occasionally, smokes marijuana and denies smoking cigarettes. 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 [facility] Medical History Ulcerative esophagitis Epidermal inclusion cyst HTN (hypertension) Surgical History History of esophagogastroduodenoscopy (EGD) History of ptosis repair H/O inguinal hernia repair Social History Housing: House Patient Tobacco Use Status: Never used Tobacco e-Cigarette/Vaping Use: Never Used Second Hand Smoke Exposure: No Substance Use Type: Marijuana service: No Current occupational status: employed Current occupation: [email or web address] Current occupational exposures/hazards: Yes Cognitive needs: No Hearing needs: No Vision needs: No Review of Systems Const Reports fatigue, Denies fever(s), Denies headache(s), Reports weight gain (wt gain of 15 lbs) and Denies weight loss Eyes Denies eye discharge and Denies irritation ENT Reports Normal hearing present, Denies dysphagia, Denies dizziness and Denies headache(s) Card Denies chest pain, Denies leg edema and Denies dyspnea on exertion Resp Denies cough, Denies dyspnea on exertion and Denies wheezing GI Denies abdominal pain, Denies change in bowel habits, Denies dysphagia and Denies heartburn Denies dysuria Musc Denies back pain and Denies arthralgias Skin/Breast Denies pruritus, Denies rash and Denies jaundice Neuro Reports Normal hearing present, Denies Abnormal speech present, Denies dizziness, Denies headache(s) and Denies seizure-like activity Psych Denies anxiety, Denies depression and Denies panic attacks Endo Denies cold intolerance, Reports fatigue, Denies flushing and Denies heat intolerance Andrea/Lymph Denies easy bleeding and Denies easy bruising Aller/Immun Denies wheezing Physical Exam Vital Signs: Last Vital Signs Pulse 97 06/14/24 11:23 BP 136/90 H 06/14/24 11:23 Pulse Ox 99 06/14/24 11:23 Oxygen Delivery Method Room Air 06/14/24 11:23 BMI result Body Mass Index 35.3 Const General: healthy appearing and no acute distress Nutritional Appearance: obese Orientation/consciousness: patient oriented x3 Limitations: no limitations HEENT Head: Yes normal to inspection Ears: hearing grossly normal bilaterally Eyes Sclerae: sclerae normal Pupils: Equal, round and reactive pupils present Neck Neck: Yes normal visual inspection Chest Chest palpation & inspection: normal inspection of the chest Resp Effort & Inspection: normal respiratory effort Auscultation: clear to auscultation bilaterally Cardio Palpation: normal PMI Rate: regular rate Rhythm: regular rhythm Heart sounds: S1 normal heart sound present, S2 normal heart sound present and no murmurs GI Palpation (GI): Soft to palpation, nontender and No hepatosplenomegaly present Auscultation: normal bowel sounds Rectal Exam - Male: Yes deferred Skin General skin exam: no rashes or lesions noted Neuro General: patient oriented x3, gait normal and moves all extremities Cranial nerves: Yes Equal, round and reactive pupils present and Yes Normal hearing present Speech: No Abnormal speech present Psych Appearance: grossly normal Mental Status: mental status grossly normal Assessment & Plan Assessment & Plan (1) NAFL (nonalcoholic fatty liver): Code(s): K76.0 - Fatty (change of) liver, not elsewhere classified Category: Medical Plan 53 YM with hypertension, asthma, cholelithiasis and kidney stones followed in GI for GERD complicated by erosive esophagitis and past episode of food impaction. GERD symptoms are well controlled with esomeprazole. 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 06/14/24 Patient denies symptoms of heartburn as long as he takes the esomeprazole. Denies dysphagia, nausea, vomiting, change in appetite or weight. Pt advised to have lab tests and FU in 6 months Orders: Orders Prothrombin Time INR 06/14/24 K76.0 - Fatty (change of) liver, not elsewhere classified Liver Panel 06/14/24 K76.0 - Fatty (change of) liver, not elsewhere classified Liver Fibrosis Pnl 06/14/24 K76.0 - Fatty (change of) liver, not elsewhere classified Coding Level of Care Code Est Pt Level 4 (05966) Diagnoses NAFL (nonalcoholic fatty liver) K76.0 Time Spent (min) 21
== END 2024-06-14 12:07 | disposition home or self-care (01) ==
LOC: HO.HGI 11:20
PROVIDERS: PCP Nurse Practitioner Family; Visit Provider Internal Medicine Gastroenterology
DX: K76.0 Fatty (change of) liver, not elsewhere classified (principal)
CPT/HCPCS: 99499

== ENCOUNTER 2024-09-13 07:59 | Outpatient (AMB) | payer BC, SELFPAY ==
[2024-09-13 08:02] VITALS: BP 132/104; PULSE 67; TEMP 36.8; O2SAT 96; BMI 36.8
--- NOTE | 2024-09-13 08:02 | A.OFFPC_ITS ---
Vital Signs 09/13/24 08:02 09/13/24 09:06 Height 5 ft 10 in Weight 256 lb 4 oz BMI 36.8 BP 132/104 H 130/78 Blood Pressure Location Rt brachial Rt brachial Position Sitting Sitting Pulse 67 Pulse Source Pulse Oximeter Temp 98.3 F Temp Source Oral Pulse Oximetry (%) 96 Oxygen Delivery Method Room Air Intake Visit Reasons: Adult CPE Male 18-49 Intake Note: Pt is here today for PE. Allergies Sulfa (Sulfonamide Antibiotics) [SULFA (SULFONAMIDE ANTIBIOTICS)] Allergy (Intermediate, Verified 09/13/24 08:06) Severe vomiting/acid reflux/SOB Medication List - Last Reconciled 09/13/24 by Renato Mae, ABBIE-CARLOS albuterol sulfate 90 mcg/actuation 1 inh inhalation QID PRN allopurinol 300 mg PO DAILY esomeprazole magnesium 40 mg PO DAILY 90 days inhalational spacing device (Aerochamber MV spacer) As directed lisinopril 40 mg PO DAILY metoprolol succinate ER 100 mg PO DAILY triamterene-hydrochlorothiazid 37.5-25 mg 1 tab PO QAM Tobacco use date assessed: 09/13/24 Dental Screening Dental Screen Date: 09/13/24 Did you have a dental visit in the last 12 months?: No Did you have a dental problem in the last 6 months where you did not have access to dental care?: No Was dental information given to patient?: No HPI Adult CPE Male 18-49 HPI Details History of Present Illness The patient is a 54-year-old male presenting with a need for physical therapy. He reports experiencing feverish chills, shortness of breath, abdominal pain, and gastrointestinal issues including blood in stool, constipation, and diarrhea. The patient has a significant family history of pancreatic, prostate, and colon cancer. His colon cancer screening is up to date, and previous imaging of the abdomen with MRI was negative for pancreatic lesions but revealed fatty liver. A CA 19-9 test was performed in the past and was not elevated. The patient is obese, and a physical examination revealed normal heart sounds, clear lungs, no carotid bruits, and no edema. Wart tissue was noted on the right hand, distal fingers 3 and 4. Health Maintenance - Colon cancer screening is up to date - Referral to genetics for further testi ng due to family history of cancer Social History Review of Systems - General: Reports feverish chills - Respiratory: Reports shortness of becca th - Gastrointestinal: Reports abdominal pa in, blood in stool, constipation, diarrhea - Genitourinary: Denies urinary issues - Psychiatric: Denies suicidal or homici arturo ideation Physical Exam General: Cooperative, healthy appearing, comfortable, no acute distress and well developed Orientation: Patient oriented x3 Limitations: No limitations Head: Normal to inspection Ears: Hearing grossly normal bilaterally Nose: Normal external nose present Face and sinus: Normal facial exam Eyes: Appearance normal, both eyes and all related structures Neck: Normal visual inspection and Yes full ROM, no carotid bruits noted Respiratory: Normal respiratory effort and able to speak in complete sentences. Clear to auscultation bilaterally Cardiovascular: Regular rate and rhythm. Normal S1 and S2 GI: Normal to inspection. Soft to palpation and nontender : Testicles without masses/lesions and no hernias appreciated Skin: No rashes or lesions noted Neuro: Patient oriented x3 Extremities: Normal to inspection, wart tissue noted to right hand, distal fingers 3 and 4 Results - Imaging: MRI of abdomen negative for p ancreatic lesions, noted fatty liver - Labs: CA 19-9 test not elevated Plan The patient will be referred to genetics for further testing due to his significant family history of pancreatic, prostate, and colon cancer. Continued monitoring of his obesity and fatty liver is recommended, with lifestyle modifications to address these issues. Physical therapy will be continued as planned. Discussion Notes I discussed with the patient the importance of genetic testing given his family history of cancer and the need for ongoing monitoring of his obesity and fatty liver. We also reviewed the plan to continue physical therapy. Patient Instructions - Continue with physical therapy session s as scheduled. - Follow up with genetics for further te sting due to family history of cancer. - Monitor weight and consider lifestyle changes to address obesity and fatty liver. [facility] Medical History Ulcerative esophagitis Epidermal inclusion cyst HTN (hypertension) Surgical History History of esophagogastroduodenoscopy (EGD) History of ptosis repair H/O inguinal hernia repair Social History Housing: House Patient Tobacco Use Status: Never used Tobacco e-Cigarette/Vaping Use: Never Used Second Hand Smoke Exposure: No Substance Use Type: Marijuana service: No Current occupational status: employed Current occupation: [employer] Current occupational exposures/hazards: Yes Cognitive needs: No Hearing needs: No Vision needs: No Questionnaire PHQ-9 Over the last 2 weeks, how often have you been bothered by any of the following problems? 1. Little interest or pleasure in doing things: several days 2. Feeling down, depressed, or hopeless: not at all 3. Trouble falling or staying asleep, or sleeping too much: not at all 4. Feeling tired or having little energy: more than half the days 5. Poor appetite or overeating: more than half the days 6. Feeling bad about yourself - or that you are a failure or have let yourself or your family down: not at all 7. Trouble concentrating on things, such as reading the newspaper or watching television: not at all 8. Moving or speaking so slowly that other people could have noticed. Or the opposite - being so fidgety or restless that you have been moving around a lot more than usual: not at all 9. Thoughts that you would be better off or of hurting yourself in some way: not at all Total score: 5 Depression Screening Interpretation: Negative Depression Screening Done: Yes 39608 - PHQ-9 Billing: Yes Source: Developed by Drs. Sebastián Sood, Giovanna Valdez, Jack Rush and colleagues, with an educational juvencio from [employer]. Thrive Questionnaire Date Thrive assessed: 09/10/24 I am a: Patient What is your living situation today?: I have a steady place to live Within the past 12 months, did the food you bought not last and you didn't have the money to get more?: Never true Within the past 12 months, did you worry whether your food would run out before you got money to buy more?: Never true Do you have trouble paying for medicines?: No Do you have trouble getting transportation to medical appointments?: No Do you have trouble paying your heating and electricity bill?: No Do you have trouble taking care of your child, family member or friend?: No Do you have trouble with day-to-day activities such as bathing, preparing meals, shopping, managing finances, etc.?: No Are you currently unemployed and looking for a job?: No Are you interested in more education?: No THRIVE Score: 0 AUDIT C Alcohol Use Questionnaire (AUDIT-C) 1. How often do you have a drink containing alcohol?: 4 or more times a week 2. How many drinks containing alcohol do you have on a typical day when you are drinking?: 1 or 2 3. How often do you have six or more drinks on one occasion?: Monthly Total Score: 6 Score Reviewed/Action Taken: Yes LETY-7 AMB Questionnaire LETY-7 Date LETY - 7 assessed: 09/13/24 Feeling nervous, anxious, or on edge: 0 = Not at all Not being able to stop or control worryin = Not at all Worrying too much about different things: 0 = Not at all Trouble relaxin = Not at all Being so restless that it is hard to sit still: 0 = Not at all Becoming easily annoyed or irritable: 0 = Not at all Feeling afraid as if something awful might happen: 0 = Not at all Total LETY-7 score (0-4 normal; 5-9 mild; 10-14 moderate; 15-21 severe): 0 Source: Developed by Drs. Sebastián Sood, Giovanna Valdez, Jack Rush and colleagues, with an educational juvencio from [employer]. LETY-7 Assessment Billing LETY-7 Assessment Tool: LETY-7 Assessment 63641 Physical exam (Primary Care) Vital Signs: Last Vital Signs Temp 98.3 F 09/13/24 08:02 Pulse 67 09/13/24 08:02 BP 130/78 09/13/24 09:06 Pulse Ox 96 09/13/24 08:02 Oxygen Delivery Method Room Air 09/13/24 08:02 BMI result Body Mass Index 36.8 Tobacco/Smoking Status: Tobacco use Status Tobacco use date assessed 09/13/24 09/13/24 08:12 Patient Tobacco Use Status Never used Tobacco 09/13/24 08:02 e-Cigarette/Vaping Use Never Used 09/13/24 08:02 PHQ-9: PHQ-9 Score PHQ-9: Total score 5 09/13/24 09:06 Depression Screening Interpretation: Negative Thrive Assessment: Date of Thrive Assessment Date Thrive assessed 09/10/24 09/13/24 08:02 Coding Level of Care Code Est Pt Prev Care 40-64y(22269) Diagnoses Physical exam Z00.00 Screening PSA (prostate specific antigen) Z12.5 Family history of pancreatic cancer Z80.0 Family hx of prostate cancer Z80.42 Family history of colon cancer Z80.0 Idiopathic gout, unspecified site M10.00 Additional Codes LETY-7 Assessment Billing - LETY-7 Assessment Tool: LETY-7 Assessment 58272 ([id number]) PHQ-9 - 40306 - PHQ-9 Billing: Yes ([id number]) Assessment & Plan Assessment & Plan (1) Physical exam: Code(s): Z00.00 - Encounter for general adult medical examination without abnormal findings Category: Medical (2) Screening PSA (prostate specific antigen): Code(s): Z12.5 - Encounter for screening for malignant neoplasm of prostate Category: Medical (3) Family history of pancreatic cancer: Code(s): Z80.0 - Family history of malignant neoplasm of digestive organs Category: Medical (4) Family hx of prostate cancer: Code(s): Z80.42 - Family history of malignant neoplasm of prostate Category: Medical (5) Family history of colon cancer: Code(s): Z80.0 - Family history of malignant neoplasm of digestive organs Category: Medical (6) Idiopathic gout, unspecified site: Code(s): M10.00 - Idiopathic gout, unspecified site Category: Medical Plan . Orders: Orders Complete Blood Count Auto Diff Today Z00.00 - Encounter for general adult medical examination without abnormal findings TSH reflex Free T4 Today Z00.00 - Encounter for general adult medical examination without abnormal findings Lipid Panel Today Z00.00 - Encounter for general adult medical examination without abnormal findings Prostate Specific Antigen Scr Today Z12.5 - Encounter for screening for malignant neoplasm of prostate Carbohydrate Antigen 19-9 Today Z80.0 - Family history of malignant neoplasm of digestive organs AMB EKG-In Office Today Z00.00 - Encounter for general adult medical examination without abnormal findings Uric Acid Today M10.00 - Idiopathic gout, unspecified site Comprehensive [place]. Panel Fast Today Z00.00 - Encounter for general adult medical examination without abnormal findings UA CC w/rflx Micro + Cult Today Z00.00 - Encounter for general adult medical examination without abnormal findings Referrals Genetics Referral Z80.0 - Family history of malignant neoplasm of digestive organs, Z80.42 - Family history of malignant neoplasm of prostate
[2024-09-13 09:06] VITALS: BP 130/78
== END 2024-09-13 09:23 | disposition home or self-care (01) ==
LOC: HO.HMCC 08:00
PROVIDERS: PCP Nurse Practitioner Family; Visit Provider Nurse Practitioner Family
DX: Z00.00 Encounter for general adult medical examination without abnormal findings (principal); Z12.5 Encounter for screening for malignant neoplasm of prostate; Z80.0 Family history of malignant neoplasm of digestive organs; Z80.42 Family history of malignant neoplasm of prostate; M10.00 Idiopathic gout, unspecified site

== ENCOUNTER → 2024-09-13 07:59 | Outpatient (BNVA) | payer BC, SELFPAY | PROVIDERS: PCP Nurse Practitioner Family; Visit Provider Nurse Practitioner Family | DX: Z00.00 Encounter for general adult medical examination without abnormal findings (principal); M10.00 Idiopathic gout, unspecified site; K59.00 Constipation, unspecified; R19.7 Diarrhea, unspecified; Z80.0 Family history of malignant neoplasm of digestive organs; Z80.42 Family history of malignant neoplasm of prostate | CPT/HCPCS: 96127 ==

== ENCOUNTER 2024-12-13 11:11 | Outpatient (REF) | payer BC, SELFPAY ==
[2024-12-13 14:23] LABS: Ferritin 317 ng/mL (20-250)
[2024-12-14 08:27] LABS: HBS Num1 91.27 mIU/mL (0-7.99); HBc Num1 0.06 S/CO (0.00-0.79); HBsAGNum1 0.51 S/CO (0.00-0.99); Hepatitis B Surface Antigen Negative (Negative); ~HepC Num1 0.16 S/CO (0.00-0.79); ~Hepatitis B Surface Antibody REACTIVE (Nonreactive); ~Hepatitis C Antibody Nonreactive (Nonreactive)
== END 2024-12-13 11:12 | disposition home or self-care (01) ==
LOC: HO.LAB 11:11
PROVIDERS: PCP Nurse Practitioner Family; Visit Provider Internal Medicine Gastroenterology
DX: K76.0 Fatty (change of) liver, not elsewhere classified (principal); K21.9 Gastro-esophageal reflux disease without esophagitis; Z12.11 Encounter for screening for malignant neoplasm of colon
CPT/HCPCS: 36415; 81256; 82728; 86704; 86706; 86803; 87340

== ENCOUNTER 2024-12-13 11:11 | Outpatient (AMB) | payer BC, SELFPAY ==
[2024-12-13 11:18] VITALS: BP 148/78; PULSE 84; BMI 36.4
--- NOTE | 2024-12-13 11:18 | MHC.OFFVIS ---
Vital Signs 12/13/24 11:18 Height 5 ft 10 in Weight 254 lb BMI 36.4 BP 148/78 H Blood Pressure Location Lt brachial Position Sitting Pulse 84 Oxygen Delivery Method Room Air Intake Visit Reasons: 6 mo f/u Intake Note: Patient follow up for NAFL and lab results Patient denies any GI issues. 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: No Accompanied by: Self / Same As Patient Allergies Sulfa (Sulfonamide Antibiotics) (SULFA (SULFONAMIDE ANTIBIOTICS)) Allergy (Intermediate, Verified 12/13/24 11:17) Severe vomiting/acid reflux/SOB Medication List - Last Reconciled 12/13/24 by Paty Dupree MD allopurinol 300 mg PO DAILY esomeprazole magnesium 40 mg PO DAILY 90 days inhalational spacing device (Aerochamber MV spacer) As directed lisinopril 40 mg PO DAILY metoprolol succinate ER 100 mg PO DAILY triamterene-hydrochlorothiazid 37.5-25 mg 1 tab PO QAM HPI HPI 6 mo f/u: Details: GI clinic visit for this 54 YM for FU of esophagitis TODAY'S VISIT: Patient follow up for NAFL and lab results Patient denies any GI issues. Denies heartburn - noted symptoms when he ran out of his medication Patient denies symptoms of heartburn as long as he takes the esomeprazole. Denies dysphagia, nausea, vomiting, change in appetite or weight. Denies recent change in bowel habits, constipation, diarrhea, black stools or rectal bleeding. Wt gain of 6 lbs over the past 6 months Patient has hypertension, asthma, kidney stones and gallstones and denies major cardiac problems, loud snoring or sleep apnea Denies problems with anesthesia in the past. Denies being on chronic anticoagulation. FAMILY HX: Positive for pancreatic cancer in his Mom at age 60 A brother was diagnosed with colon cancer in his 60's Three brothers have been diagnosed with cancers - prostate cancer, kidney cancer, thyroid and throat cancers LABS IN Epiphyte : Reviewed IMAGING STUDIES: 09/2023 [facility] MRI SHOWED: 1. No evidence of malignancy in the abdomen. 2. Hepatomegaly and hepatic steatosis. 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 BIOPSIES SHOWED: A. Stomach, antrum, biopsy: Gastric antral mucosa within normal limits; negative for Helicobacter pylori, intestinal metaplasia and dysplasia. B. Gastroesophageal junction, biopsy: Squamocolumnar junctional mucosa with mild chronic inactive inflammation and reactive epithelial changes; negative for intestinal metaplasia and dysplasia. PAST GI HISTORY BY REVIEW OF MEDICAL RECORDS: 12/2023 PT WAS SEEN AT [facility] WITH DYSPHAGIA: Reason for consult: dysphagia due to food impaction 53 YM with hypertension seen at [facility] on 12/30/23 with dysphagia and inabilty to swallow solids or liquids since 9:30 am today Pt reports intermittent dysphagia and three episodes of food impaction over the last month which resolved spontaneously Today patient was at the [employer] [facility] and ate a steak sample (handed out on a tooth pick) at 9:30 am. Sample was hot so he gulped it down and since then unable to swallow his saliva or liquids He tried to regugitate the bolus by trying to drink [place] water Pt feel food is stuck in upper chest and felt short of breath and came to the ER. In the ED, he was treated with IV Glucaogon without resolution of his symptoms Pt reports a hx of mild heartburn for the past few years and takes TUMS and Omeprazole on a prn basis. Patient has a history of asthma in childhood and denies any cardiac or pulmonary problems, history of loud snoring or sleep. He denies problems with anesthesia. Patient takes alcohol occasionally, smokes marijuana and denies smoking cigarettes. 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[employer] [facility] Medical History Ulcerative esophagitis Epidermal inclusion cyst HTN (hypertension) Surgical History History of esophagogastroduodenoscopy (EGD) History of ptosis repair H/O inguinal hernia repair Social History Housing: House Patient Tobacco Use Status: Never used Tobacco e-Cigarette/Vaping Use: Never Used Second Hand Smoke Exposure: No Substance Use Type: Marijuana service: No Current occupational status: employed Current occupation: [employer] Current occupational exposures/hazards: Yes Cognitive needs: No Hearing needs: No Vision needs: No Review of Systems Const All systems reviewed & are unremarkable except as noted in HPI and below ENT Reports Normal hearing present Neuro Reports Normal hearing present and Denies Abnormal speech present Physical Exam Vital Signs: Last Vital Signs Pulse 84 12/13/24 11:18 BP 148/78 H 12/13/24 11:18 Oxygen Delivery Method Room Air 12/13/24 11:18 BMI result Body Mass Index 36.4 Const General: healthy appearing and no acute distress Nutritional Appearance: obese Orientation/consciousness: patient oriented x3 Limitations: no limitations HEENT Head: Yes normal to inspection Ears: hearing grossly normal bilaterally Eyes Sclerae: sclerae normal Pupils: Equal, round and reactive pupils present Neck Neck: Yes normal visual inspection Chest Chest palpation & inspection: normal inspection of the chest Resp Effort & Inspection: normal respiratory effort Auscultation: clear to auscultation bilaterally Cardio Palpation: normal PMI Rate: regular rate Rhythm: regular rhythm Heart sounds: S1 normal heart sound present, S2 normal heart sound present and no murmurs GI Palpation (GI): Soft to palpation, nontender and No hepatosplenomegaly present Auscultation: normal bowel sounds Rectal Exam - Male: Yes deferred Skin General skin exam: no rashes or lesions noted Neuro General: patient oriented x3, gait normal and moves all extremities Cranial nerves: Yes Equal, round and reactive pupils present and Yes Normal hearing present Speech: No Abnormal speech present Psych Appearance: grossly normal Mental Status: mental status grossly normal Assessment & Plan Assessment & Plan (1) Abdominal pain: Code(s): R10.9 - Unspecified abdominal pain Category: Medical Qualifiers: Abdominal location: left lower quadrant Qualified Code(s): R10.32 - Left lower quadrant pain (2) Screening for colon cancer: Code(s): Z12.11 - Encounter for screening for malignant neoplasm of colon Category: Medical (3) GERD (gastroesophageal reflux disease): Code(s): K21.9 - Gastro-esophageal reflux disease without esophagitis Category: Medical (4) NAFL (nonalcoholic fatty liver): Code(s): K76.0 - Fatty (change of) liver, not elsewhere classified Category: Medical Plan 54 YM with hypertension, asthma, cholelithiasis and kidney stones followed in GI for GERD complicated by erosive esophagitis and past episode of food impaction. GERD symptoms are well controlled with esomeprazole. Pt advised to continue Esomeprazole longterm 12/13/24 Patient denies symptoms of heartburn as long as he takes the esomeprazole. Wt gain of 6 lbs over the past 6 months Fatty liver seen on past imaging studies - patient advised to work on weight reduction FU in 4 months - scheduled 04/18/25 Orders: Orders Hepatitis B Surface Antigen Today K76.0 - Fatty (change of) liver, not elsewhere classified Hepatitis B Core Antibody Today K76.0 - Fatty (change of) liver, not elsewhere classified Fecal Fat Qualitative Today K76.0 - Fatty (change of) liver, not elsewhere classified Hepatitis B Surface Antibody Today K76.0 - Fatty (change of) liver, not elsewhere classified Hepatitis C Antibody Today K76.0 - Fatty (change of) liver, not elsewhere classified IRON PROFILE Today K76.0 - Fatty (change of) liver, not elsewhere classified Ferritin Today K76.0 - Fatty (change of) liver, not elsewhere classified DNA Analysis Hemochromatosis Today K76.0 - Fatty (change of) liver, not elsewhere classified Liver Panel Today K76.0 - Fatty (change of) liver, not elsewhere classified Coding Level of Care Code Est Pt Level 4 (83299) Diagnoses Left lower quadrant abdominal pain R10.32 Abdominal location: left lower quadrant Screening for colon cancer Z12.11 GERD (gastroesophageal reflux disease) K21.9 NAFL (nonalcoholic fatty liver) K76.0 Time Spent (min) 21
== END 2024-12-13 12:19 | disposition home or self-care (01) ==
LOC: HO.HGI 11:11
PROVIDERS: PCP Nurse Practitioner Family; Visit Provider Internal Medicine Gastroenterology
DX: R10.32 Left lower quadrant pain (principal); K21.9 Gastro-esophageal reflux disease without esophagitis; K76.0 Fatty (change of) liver, not elsewhere classified
CPT/HCPCS: 99214